=== PATIENT | female | born 1995 | race Caucasian/White ===

== ENCOUNTER 2016-08-12 13:17 | Emergency (ER) | payer OTHER ==
[2016-08-12] MEDS ORDERED: NS 0.9% 1000 ML* 1,000 ML IV ONE (14:21)
[2016-08-12] MEDS ORDERED: Ondansetron INJ* 2 MG/ML VIAL IV ONE (14:21)
[2016-08-12 14:34] LABS: Hematocrit 42 % (35-47); Hemoglobin 14.1 g/dl (12.0-16.0); Mean Corpuscular HGB Conc 34 g/dl (31-36); Mean Corpuscular Hemoglobin 30 pg (27-31); Mean Corpuscular Volume 89 fL (80-97); Mean Platelet Volume 9 um3 (7.4-10.4); Red Blood Count 4.72 10^6/ul (4.0-5.4); Red Cell Distribution Width 12 % (10.5-15); White Blood Count 20.7 10^3/ul (3.5-10.8)
[2016-08-12 14:35] LABS: Add Diff/Slide Review? Slide Review Added; Comments Flag Yes
[2016-08-12 14:47] LABS: ALT 25 U/L (7-52); AST 22 U/L (13-39); Albumin 4.8 g/dL (3.2-5.2); Alkaline Phosphatase 71 U/L (34-104); Anion Gap 16 mmol/L (2-11); BUN/Creatinine Ratio 19.4 (8-20); Blood Urea Nitrogen 13 mg/dL (6-24); CO2 Carbon Dioxide 20 mmol/L (22-32); Calcium 9.8 mg/dL (8.6-10.3); Chloride 102 mmol/L (101-111); EGFR African American 145.8 (>60); EGFR Non-African American 113.4 (>60); Globulin 3.4 g/dL (2-4); Glucose 140 mg/dL (70-100); Lipase < 10 U/L (11.0-82.0); Potassium 3.5 mmol/L (3.5-5.0); Sodium 138 mmol/L (133-145); Total Protein 8.2 g/dL (6.4-8.9)
--- NOTE | 2016-08-12 16:16 | RAD ---
Indication: Epigastric pain. Real-time sonography of the right upper quadrant was performed. Liver is mildly enlarged measuring up to 19 cm in length. No focal lesions or intrahepatic ductal dilatation is noted. The gallbladder demonstrates no gallstones, pericholecystic fluid or wall thickening. Common duct measures 1.1 mm. Right kidney measures 10.9 x 5.9 x 4.8 cm. The pancreatic head, neck and proximal body demonstrates no mass or pancreatic duct dilatation. IMPRESSION: No evidence of cholelithiasis or biliary ductal dilatation is present.
[2016-08-12 16:53] VITALS: BP 112/80
--- NOTE | 2016-08-12 17:12 | RAD ---
Indication: Vomiting. Flat and upright views of the abdomen demonstrate no free air. Dilated loops of bowel are noted. The colon is filled with stool. IMPRESSION: No free air or obstruction is noted.
[2016-08-12 17:21] LABS: Urine Bilirubin Negative (Negative); Urine Glucose Negative (Negative); Urine Nitrite Negative (Negative)
[2016-08-12 17:23] LABS: UR Preg Internal Control QC Line Present
--- NOTE | 2016-08-12 20:30 | ED ---
Conner Zaldivar Billy, scribed for Sebastian Main MD on 08/12/16 at 1546 . Abdominal Pain/Female - HPI Summary HPI Summary: Patient is a 20 y/o female who [facility] c/o epigastric pain since this morning. She reports she consumed a large quantity of EtOH last night recreational and vomited at approximately midnight, but states she has been vomiting nonstop since this morning. Vomiting is worsened by any PO intake. She reports diarrhea, but denies a fever or any blood in her stool. She has been diagnosed with IBS and has a history of bloating and nausea after food intake, but states this is dissimilar to previous experiences. She reports a friend had a similar episode, but recovered much sooner and sx were not as severe. She reports her LNMP was in May 2016 and that she is on BCP. Friends also note she has been shaking constantly for hours, but that has now been resolved. She denies any abnormal urinary sx or vaginal discharge. - History of Current Complaint Chief Complaint: EDNauseaVomitDiarrh Stated Complaint: VOMITING Time Seen by Provider: 08/12/16 14:19 Hx Obtained From: Patient, Other: - Friends Hx Last Menstrual Period: May 2016. Pt is on BCP. Onset/Duration: Gradual Onset, Lasting Hours, Still Present Timing: Constant Severity Initially: Moderate Severity Currently: Moderate Location: Epigastric Radiates: No Aggravating Factor(s): Other: - Unable to tolerate PO intake due to vomiting. Alleviating Factor(s): Nothing Associated Signs and Symptoms: Positive: Nausea, Vomiting, Diarrhea, Other: - shakes. Negative: Fever, Blood in Stool, Urinary Symptoms, Vaginal Discharge Allergies/Adverse Reactions: Allergies Allergy/AdvReac Type Severity Reaction Status Date / Time No Known Allergies Allergy Verified 08/12/16 13:26 PMH/Surg Hx/FS Hx/Imm Hx Cardiovascular History: Reports: Other Cardiovascular Problems/Disorders - POTS Psychiatric History: Reports: Hx Depression - Surgical History Surgery Procedure, Year, and Place: Appendectomy. Infectious Disease History: No Infectious Disease History: Denies: Traveled Outside the US in Last 30 Days - Family History Known Family History: Positive: Diabetes - Father - Social History Alcohol Use: Weekly Hx Substance Use: Yes Substance Use Type: Reports: Marijuana Hx Tobacco Use: No Smoking Status (MU): Never Smoked Tobacco Review of Systems Positive: Other - shakes. Negative: Fever Positive: Abdominal Pain, Vomiting, Diarrhea, Nausea All Other Systems Reviewed And Are Negative: Yes Physical Exam Triage Information Reviewed: Yes Vital Signs On Initial Exam: Initial Vitals Temp Pulse Resp BP Pulse Ox 97.1 F 71 20 131/71 100 08/12/16 13:27 08/12/16 13:27 08/12/16 13:27 08/12/16 13:27 08/12/16 13:27 Vital Signs Reviewed: Yes Appearance: Positive: Well-Appearing - comfortable, pleasant, alert, No Pain Distress - comfortable appearing although not Eyes: Positive: INGRID ENT: Positive: Other - DMM Neck: Positive: Supple, Other: - soft, no adenopathy, no edema Respiratory/Lung Sounds: Positive: Clear to Auscultation, Breath Sounds Present , Other - comfortable. Negative: Rales, Wheezes Cardiovascular: Positive: RRR, Other - no gallops, S1, S2. Negative: Murmur, Rub Abdomen Description: Positive: Soft, Other: - epigastric tenderness without guarding or rebound.. Negative: CVA Tenderness (R), CVA Tenderness (L), Distended Musculoskeletal: Positive: Other - calves are soft and nontender.. Negative: Edema Left, Edema Right Neurological: Positive: Alert, Oriented to Person Place, Time Psychiatric: Positive: Affect/Mood Appropriate - Logical and coherent. AVPU Assessment: Alert Diagnostics - Vital Signs Vital Signs Temp Pulse Resp BP Pulse Ox 08/12/16 13:27 97.1 F 71 20 131/71 100 - Laboratory Lab Results: Lab Results 08/12/16 08/12/16 Range/Units 14:21 14:21 WBC 20.7 H (3.5-10.8) 10^3/ul RBC 4.72 (4.0-5.4) 10^6/ul Hgb 14.1 (12.0-16.0) g/dl Hct 42 (35-47) % MCV 89 (80-97) fL MCH 30 (27-31) pg MCHC 34 (31-36) g/dl RDW 12 (10.5-15) % Plt Count 298 (150-450) 10^3/ul MPV 9 (7.4-10.4) um3 Neut % (Auto) 90.2 H (38-83) % Lymph % (Auto) 5.9 L (25-47) % Johnson % (Auto) 3.3 (1-9) % Eos % (Auto) 0 (0-6) % Baso % (Auto) 0.6 (0-2) % Absolute Neuts (auto) 18.7 H (1.5-7.7) 10^3/ul Absolute Lymphs (auto) 1.2 (1.0-4.8) 10^3/ul Absolute Monos (auto) 0.7 (0-0.8) 10^3/ul Absolute Eos (auto) 0 (0-0.6) 10^3/ul Absolute Basos (auto) 0.1 (0-0.2) 10^3/ul Absolute Nucleated RBC 0 10^3/ul Nucleated RBC % 0 Sodium 138 (133-145) mmol/L Potassium 3.5 (3.5-5.0) mmol/L Chloride 102 (101-111) mmol/L Carbon Dioxide 20 L (22-32) mmol/L Anion Gap 16 H (2-11) mmol/L BUN 13 (6-24) mg/dL Creatinine 0.67 (0.51-0.95) mg/dL Est GFR ( Amer) 145.8 (>60) Est GFR (Non-Af Amer) 113.4 (>60) BUN/Creatinine Ratio 19.4 (8-20) Glucose 140 H (70-100) mg/dL Calcium 9.8 (8.6-10.3) mg/dL Total Bilirubin 0.40 (0.2-1.0) mg/dL AST 22 (13-39) U/L ALT 25 (7-52) U/L Alkaline Phosphatase 71 (34-104) U/L Total Protein 8.2 (6.4-8.9) g/dL Albumin 4.8 (3.2-5.2) g/dL Globulin 3.4 (2-4) g/dL Albumin/Globulin Ratio 1.4 (1-3) Lipase < 10 L (11.0-82.0) U/L Beta HCG, Quant < 0.60 mIU/mL Result Diagrams: 08/12/16 14:21 08/12/16 14:21 Lab Statement: Any lab studies that have been ordered have been reviewed, and results considered in the medical decision making process. - Radiology Abd XRay Radiology Interpretation Completed By: Radiologist - No free air or obstruction is noted. - Ultrasound No standard instances Ultrasound Interpretation Completed By: Radiologist - GALLBLADDER ULTRASOUND: No evidence of cholelithiasis or biliary ductal dilatation is present. Re-Evaluation - Re-Evaluation First Eval Re-Evaluation Time: 16:59 Comment: Improved. Abdominal Pain Fem Course/Dx - Course Course Of Treatment: She represented for vomiting since midnight. She has already had an appendectomy. She presents with benign abd, normal, afebrile, tachycardia. Since she has an elevated WBC, we brought her workup to include a gallbladder US, as well as an X-Ray to look for obstruction. Thus far, work up is completely negative except for elevated WBC. Repeated exam of abd at and it is still completely flat and non-tender, even with deep palpation. This is the most consistent with viral etiology. She agrees without hesitation to return tomorrow for any worsening of sx, any new sx (such as pain), or if the vomiting does not improve. As we speak, she is taking sips of Ally Regine, and we discussed diet, as well. Otherwise she will follow up with [facility] on Sunday. - Diagnoses Differential Diagnosis: Positive: Appendicitis, Ectopic , Gall Bladder Disease, Irritable Bowel Syndrome, Ovarian Cyst, Pancreatitis, Pelvic Inflammatory Disease, Peptic Ulcer Disease, Pneumonia, , Urinary Tract Infection Provider Diagnoses: Vomiting, Gastritis Discharge - Discharge Plan Condition: Good Disposition: HOME Prescriptions: Ondansetron ODT TAB* [Zofran Odt TAB*] 4 mg PO Q8H PRN #12 tab.odt PRN Reason: Vomiting Patient Education Materials: Acute Nausea and Vomiting (ED) Referrals: Non Staff,Doctor [Primary Care Provider] - Additional Instructions: Follow up with [facility] office on Sunday. Return here for any changes or continued vomiting as we discussed. The documentation as recorded by the Conner hubbard Billy accurately reflects the service I personally performed and the decisions made by me, Sebastian Main MD.
== END 2016-08-12 19:09 | disposition home or self-care (01) ==
LOC: ED 13:17
DX: R10.13 Epigastric pain (principal); R11.2 Nausea with vomiting, unspecified; R19.7 Diarrhea, unspecified; K29.70 Gastritis, unspecified, without bleeding
CPT/HCPCS: 36415; 74000; 76705; 80053; 81003; 81025; 83690; 84702; 85025; 96374; 99282; J2405

== ENCOUNTER 2016-11-02 10:54 | Emergency (ER) | payer OTHER ==
--- NOTE | 2016-11-02 12:34 | RAD ---
INDICATION: Head injury. COMPARISON: There are no prior studies available for comparison. TECHNIQUE: Contiguous axial sections of the brain were obtained from the skull base to the vertex without contrast. FINDINGS: The ventricles, cisterns and sulci are within normal limits. No significant focal abnormality or mass effect is seen. There is no evidence for hemorrhage. No significant focal osseous abnormality is seen. The visualized portion of the paranasal sinuses and mastoid air cells appear clear. IMPRESSION: NO EVIDENCE FOR ACUTE INTRACRANIAL ABNORMALITY.
[2016-11-02 12:43] LABS: Hematocrit 43 % (35-47); Hemoglobin 14.4 g/dl (12.0-16.0); Mean Corpuscular HGB Conc 34 g/dl (31-36); Mean Corpuscular Hemoglobin 30 pg (27-31); Mean Corpuscular Volume 90 fL (80-97); Mean Platelet Volume 9 um3 (7.4-10.4); Red Blood Count 4.79 10^6/ul (4.0-5.4); Red Cell Distribution Width 12 % (10.5-15); White Blood Count 14.2 10^3/ul (3.5-10.8)
[2016-11-02 12:54] LABS: ALT 21 U/L (7-52); AST 20 U/L (13-39); Albumin 4.4 g/dL (3.2-5.2); Alkaline Phosphatase 84 U/L (34-104); Anion Gap 9 mmol/L (2-11); Blood Urea Nitrogen 16 mg/dL (6-24); CO2 Carbon Dioxide 25 mmol/L (22-32); Calcium 9.7 mg/dL (8.6-10.3); Chloride 102 mmol/L (101-111); EGFR African American 153.7 (>60); EGFR Non-African American 119.5 (>60); Globulin 3.4 g/dL (2-4); Glucose 98 mg/dL (70-100); Potassium 3.8 mmol/L (3.5-5.0); Sodium 136 mmol/L (133-145); Total Protein 7.8 g/dL (6.4-8.9)
[2016-11-02 13:34] VITALS: BP 113/67
--- NOTE | 2016-11-16 07:08 | ED ---
Conner Zaldivar Billy, scribed for Francisco Armstrong MD on 11/02/16 at 1203 . Head Injury - HPI Summary HPI Summary: Patient is a 20 year-old female with a history of POTS coming to [facility] for evaluation of a head injury to the left occipital region last night. Patient states that she had a sudden onset of syncope, causing her to fall to the ground from a standing position. She denies any prior episodes of syncope. Denies any other injuries due to the fall. She woke up this morning with nausea and vomiting, and was recommended by [facility] to visit [facility] for CT imaging of the brain. She reports a mild headache but denies any changes in vision, speech, or hearing. Denies chest pain or palpitations. Denies any neck pain or changes in her extremities. - History Of Current Complaint Chief Complaint: EDHeadInjury Stated Complaint: FALL Time Seen by Provider: 11/02/16 11:32 Hx Obtained From: Patient Hx Last Menstrual Period: May 2016. Pt is on BCP. Mechanism Of Injury: Fall From A Standing Position Onset/Duration: Started Hours Ago Severity Initially: Mild Location of Head Injury: Occipital Aggravating Factor(s): Other: - none Alleviating Factor(s): Other: - none Associated Signs And Symptoms: LOC (Time In Secs./Mins/Hrs), Nausea, Vomiting - Allergies/Home Medications Allergies/Adverse Reactions: Allergies Allergy/AdvReac Type Severity Reaction Status Date / Time No Known Allergies Allergy Verified 11/02/16 12:12 PMH/Surg Hx/FS Hx/Imm Hx Cardiovascular History: Reports: Other Cardiovascular Problems/Disorders - POTS Neurological History: Reports: Hx Migraine Psychiatric History: Reports: Hx Attention Deficit Hyperactivity Disorder, Hx Depression - Surgical History Surgery Procedure, Year, and Place: Appendectomy. Infectious Disease History: Denies: Traveled Outside the [place] in Last 30 Days - Family History Known Family History: Positive: Diabetes - Father - Social History Alcohol Use: Weekly Hx Substance Use: Yes Substance Use Type: Reports: Marijuana Hx Tobacco Use: No Smoking Status (MU): Never Smoked Tobacco Review of Systems Negative: Palpitations, Chest Pain Positive: Vomiting, Nausea Positive: Headache All Other Systems Reviewed And Are Negative: Yes Physical Exam Triage Information Reviewed: Yes Vital Signs On Initial Exam: Initial Vitals Pulse Resp BP Pulse Ox 91 16 119/72 99 11/02/16 11:25 11/02/16 11:25 11/02/16 11:25 11/02/16 11:25 Vital Signs Reviewed: Yes Appearance: Positive: Well-Appearing, No Pain Distress Skin: Positive: Warm Head/Face: Positive: Normal Head/Face Inspection Eyes: Positive: Normal, EOMI ENT: Positive: Normal ENT inspection Neck: Positive: Supple, Nontender Respiratory/Lung Sounds: Positive: Clear to Auscultation, Breath Sounds Present Cardiovascular: Positive: Normal, RRR. Negative: Murmur Abdomen Description: Positive: Nontender Musculoskeletal: Positive: Normal, Strength/ROM Intact Neurological: Positive: Normal, Sensory/Motor Intact, Alert, Oriented to Person Place, Time, CN Intact II-III Psychiatric: Positive: Normal - 15 gcs - Kamla Coma Scale Best Eye Response: 4 - Spontaneous Best Motor Response: 6 - Obeys Commands Best Verbal Response: 5 - Oriented Diagnostics - Vital Signs Vital Signs Pulse Resp BP Pulse Ox 11/02/16 11:25 91 16 119/72 99 - Laboratory Result Diagrams: 11/02/16 12:25 11/02/16 12:25 Lab Statement: Any lab studies that have been ordered have been reviewed, and results considered in the medical decision making process. - CT brain CT Interpretation: No Acute Changes CT Interpretation Completed By: Radiologist - EKG 1233 EKG Interpretation: NSR 88 bpm, no STEMI Head Injury Course/Dx Course Of Treatment: 20 yr old with known postural tachycardia, and near syncope. she has been worked up in the past by her [employer] in [place]. She had episode and fell and hit head last night. Ct is negative. She will be discharged to follow up at [facility]. - Diagnoses Provider Diagnoses: Head injury, Syncope Discharge - Discharge Plan Condition: Good Disposition: HOME Patient Education Materials: Head Injury (ED), Syncope (ED) Referrals: Non Staff,Doctor [Primary Care Provider] - [facility] [Outside] The documentation as recorded by the Conner hubbard Billy accurately reflects the service I personally performed and the decisions made by me, Francisco Armstrong MD.
== END 2016-11-02 14:32 | disposition home or self-care (01) ==
LOC: ED 10:54
DX: S09.90XA Unspecified injury of head, initial encounter (principal); R55 Syncope and collapse; W19.XXXA Unspecified fall, initial encounter; Y92.9 Unspecified place or not applicable
CPT/HCPCS: 36415; 70450; 80053; 83735; 84702; 85025; 93005; 99282

== ENCOUNTER 2017-04-02 12:24 | Emergency (ER) | payer OTHER ==
[2017-04-02] MEDS ORDERED: Famotidine TAB* 20 MG PO ONE (12:56)
[2017-04-02] MEDS ORDERED: NS 0.9% 1000 ML* 1,000 ML IV ONE (12:56)
[2017-04-02] MEDS ORDERED: methylPREDNISolone 125 MG* 2 ML VIAL IV ONE (12:56)
--- NOTE | 2017-04-02 15:09 | ED ---
Alek Zaldivar Alfonso, scribed for Pelon Tellez MD on 04/02/17 at 1300 . Allergic Reaction/Systemic - HPI Summary HPI Summary: This patient is a 21 year old F [facility] friends with a chief complaint of allergic reaction since 1000. She has a known nut allergy. The patient rates the pain 0/10 in severity. Symptoms aggravated by nothing. Symptoms alleviated by Benadryl. Patient reports abd pain, throat pain, difficulty swallowing, and N/V. - History of Current Complaint Chief Complaint: EDAllergicReaction Time Seen by Provider: 04/02/17 12:52 Hx Obtained From: Patient Onset/Duration: Sudden Onset, Started minutes ago - 1000 Pain Intensity: 0 Pain Scale Used: 0-10 Numeric Aggravating Factor(s): Nothing Alleviating Factor(s): Antihistamines Associated Signs And Symptoms: Positive: Other: - abd pain, throat pain, difficulty swallowing, and N/V. - Allergies/Home Medications Allergies/Adverse Reactions: Allergies Allergy/AdvReac Type Severity Reaction Status Date / Time No Known Allergies Allergy Verified 04/02/17 12:36 PMH/Surg Hx/FS Hx/Imm Hx Endocrine/Hematology History: Denies: Hx Anticoagulant Therapy Cardiovascular History: Reports: Other Cardiovascular Problems/Disorders - POTS Sensory History: Denies: Hx Deafness Opthamlomology History: Denies: Hx Legally Blind Neurological History: Reports: Hx Migraine Psychiatric History: Reports: Hx Attention Deficit Hyperactivity Disorder, Hx Depression - Surgical History Surgery Procedure, Year, and Place: Appendectomy. Infectious Disease History: Denies: Traveled Outside the [place] in Last 30 Days - Family History Known Family History: Positive: Cardiac Disease, Diabetes - Father - Social History Alcohol Use: Weekly Hx Substance Use: Yes Substance Use Type: Reports: Marijuana Hx Tobacco Use: No Smoking Status (MU): Never Smoked Tobacco Review of Systems Positive: Other - Allergic reaction, throat pain, difficulty swallowing Positive: Abdominal Pain, Vomiting, Nausea All Other Systems Reviewed And Are Negative: Yes Physical Exam Triage Information Reviewed: Yes Vital Signs On Initial Exam: Initial Vitals Temp Pulse Resp BP Pulse Ox 97.2 F 80 20 146/88 100 04/02/17 12:33 04/02/17 12:33 04/02/17 12:33 04/02/17 12:33 09/18/17 12:33 Vital Signs Reviewed: Yes Appearance: Positive: Well-Appearing, No Pain Distress Skin: Positive: Warm, Skin Color Reflects Adequate Perfusion, Dry Head/Face: Positive: Normal Head/Face Inspection Eyes: Positive: Normal ENT: Positive: Normal ENT inspection Neck: Positive: Supple, Nontender Respiratory/Lung Sounds: Positive: Clear to Auscultation, Breath Sounds Present Cardiovascular: Positive: RRR Abdomen Description: Positive: Nontender, Soft Bowel Sounds: Positive: Present Musculoskeletal: Positive: Normal Neurological: Positive: Normal, Sensory/Motor Intact, Alert, Oriented to Person Place, Time Psychiatric: Positive: Affect/Mood Appropriate Diagnostics - Vital Signs Vital Signs Temp Pulse Resp BP Pulse Ox 04/02/17 12:33 97.2 F 80 20 146/88 100 - Laboratory Lab Statement: Any lab studies that have been ordered have been reviewed, and results considered in the medical decision making process. Allergic Reaction Course/Dx - Course Course Of Treatment: Ms. Mena ate some tree nuts today. She was aware of a hisptory of peanut allergy but didn't think she was allergic to other nuts. She took benadryl for a closing throat and went to the [facility]. She was given a shot of epi and improved quite a bit. Here she remained stable and received additional medications. She has an epipen that she has never used. - Diagnoses Provider Diagnoses: Allergic reaction Discharge - Discharge Plan Condition: Stable Disposition: HOME Patient Education Materials: General Allergic Reaction (ED) Referrals: [facility] REFERRAL [Outside] - 3 Days The documentation as recorded by the Alek hubbard Alfonso accurately reflects the service I personally performed and the decisions made by me, Pelon Tellez MD.
[2017-04-02 15:41] VITALS: BP 113/75
== END 2017-04-02 15:40 | disposition home or self-care (01) ==
LOC: ED 12:24
DX: T78.40XA Allergy, unspecified, initial encounter (principal); X58.XXXA Exposure to other specified factors, initial encounter; F90.9 Attention-deficit hyperactivity disorder, unspecified type; F32.9 Major depressive disorder, single episode, unspecified
CPT/HCPCS: 96360; 96374; 99283; A9270-GY; J2930

== ENCOUNTER 2017-05-12 15:38 | Emergency (ER) | payer OTHER ==
[2017-05-12 15:48] VITALS: BP 126/82
[2017-05-12] MEDS ORDERED: NS 0.9% 1000 ML* 1,000 ML IV ONE (16:19)
[2017-05-12] MEDS ORDERED: Ondansetron INJ* 2 MG/ML VIAL IV ONE (16:20)
--- NOTE | 2017-05-12 16:26 | UC ---
Nausea/Vomiting/Diarrhea HPI - HPI Summary HPI Summary: 21 Y/O female presents with complaint of nausea, vomiting and diarrhea x one day. Has been unable to keep fluids down and complains of abdominal pain "because I am so hungry" denies pain on palpation. Denies dysuria, fever or chills. Was drinking ETOH last night but does not know how many drinks she consumed but states "a lot". Medications and medical history reviewed. - History of Current Complaint Chief Complaint: UCGI Stated Complaint: VOMITING, AND DIZZINESS Time Seen by Provider: 05/12/17 15:56 Hx Obtained From: Patient Hx Last Menstrual Period: not sure, > a month Onset/Duration: Sudden Onset, Lasting Hours Severity Initially: Moderate Severity Currently: Moderate Pain Intensity: 0 Pain Scale Used: 0-10 Numeric Character: Not Applicable Aggravating Factor(s): Nothing Alleviating Factor(s): Nothing Nausea/Vomiting Presence: Nauseated, Vomiting Vomiting Frequency: Every 1-2 hours Nausea/Vomiting Duration: 0-12 hours Diarrhea Presence: Yes Diarrhea Frequency: Every 3-4 hours Diarrhea Duration: 0-12 hours Diarrhea Characteristics: Watery - Risk Factors Influenza Risk Factors: Negative Surgical Obstruction Risk Factor(s): Negative - Allergies/Home Medications Allergies/Adverse Reactions: Allergies Allergy/AdvReac Type Severity Reaction Status Date / Time Peanut-containing Drug Allergy Swelling Verified 05/12/17 15:49 Products Tree Nuts Allergy Swelling Verified 05/12/17 15:49 Home Medications: Home Medications FLUoxetine CAP* [PROzac CAP*] 20 mg PO DAILY 05/12/17 [History Confirmed ] Methylphenidate ER TAB* [Concerta ER TAB*] 18 mg PO DAILY 05/12/17 [History Confirmed 05/12/17] Methylphenidate TAB* [Ritalin TAB*] 10 mg PO DAILY PRN 05/12/17 [History Confirmed 05/12/17] PMH/Surg Hx/FS Hx/Imm Hx Previously Healthy: Yes Other History Of: Negative For: Anticoagulant Therapy - Surgical History Surgical History: Yes Surgery Procedure, Year, and Place: Appendectomy. - Family History Known Family History: Positive: None - reviewed & noncontributory, Cardiac Disease, Diabetes - Father - Social History Alcohol Use: Weekly Substance Use Type: Marijuana Substance Use Comment - Amount & Last Used: daily Smoking Status (MU): Never Smoked Tobacco - Immunization History Most Recent Influenza Vaccination: none Review of Systems Constitutional: Negative Skin: Negative Eyes: Negative ENT: Negative Respiratory: Negative Cardiovascular: Negative Gastrointestinal: Vomiting, Diarrhea, Nausea Genitourinary: Negative Motor: Negative Neurovascular: Negative Musculoskeletal: Negative Neurological: Negative Psychological: Negative Is Patient Immunocompromised?: No All Other Systems Reviewed And Are Negative: Yes Physical Exam Triage Information Reviewed: Yes Appearance: Ill-Appearing Vital Signs: Initial Vital Signs Temp 97.7 F 05/12/17 15:42 Pulse 103 05/12/17 15:42 Resp 16 05/12/17 15:42 BP 126/82 05/12/17 15:42 Pulse Ox 99 05/12/17 15:42 Vital Signs Reviewed: Yes Eye Exam: Normal Eyes: Positive: Conjunctiva Clear Respiratory Exam: Normal Respiratory: Positive: Lungs clear, Normal breath sounds, No respiratory distress Cardiovascular Exam: Normal Cardiovascular: Positive: Tachycardia - HR 103, regular rate Abdomen Description: Positive: Soft Bowel Sounds: Positive: Present Musculoskeletal Exam: Normal Musculoskeletal: Positive: Strength Intact Neurological Exam: Normal Psychological Exam: Normal Skin Exam: Normal Naus/Vom/Diarrhea Course/Dx - Differential Dx/Diagnosis Differential Diagnoses - Female: , Gastroenteritis (Viral) Provider Diagnoses: Gastroenteritis Discharge - Discharge Plan Condition: Stable Disposition: HOME Patient Education Materials: Gastroenteritis (ED) Additional Instructions: Your test was negative. Take zofran as needed for nausea / vomiting. Start with clear liquids and advance diet as tolerated. Drink plenty of fluids. may return to Urgent Care as needed.
[2017-05-12] MEDS ORDERED: Ondansetron ODT TAB* 4 MG PO ONE (17:32)
[2017-05-12] MEDS ORDERED: Ondansetron ODT TAB* 4 MG ONE (17:33)
== END 2017-05-12 17:37 | disposition home or self-care (01) ==
LOC: UCEAST 15:38
DX: K52.9 Noninfective gastroenteritis and colitis, unspecified (principal); Z32.02 Encounter for pregnancy test, result negative; F12.90 Cannabis use, unspecified, uncomplicated
CPT/HCPCS: 84702; 96360; 96374; 99212; A9270-GY; G0463; J2405

== ENCOUNTER 2017-08-30 09:49 | Emergency (ER) | payer OTHER ==
--- NOTE | 2017-08-30 11:15 | UC ---
Abdominal Pain Female HPI - HPI Summary HPI Summary: Vomiting this morning---states she gets this periodically---this is the 3rd episode that we have seen her for in which she was drinking alcohol, at least 3 drinks , the night prior. No fevers - History of Current Complaint Chief Complaint: UCGeneralIllness Stated Complaint: VOMITING Time Seen by Provider: 08/30/17 11:13 Hx Obtained From: Patient Hx Last Menstrual Period: unknown ?: No Onset/Duration: Sudden Onset, Lasting Days - 1, Still Present Timing: Constant Severity Initially: Moderate Severity Currently: Moderate Pain Intensity: 0 Location: Diffuse Radiates: No Character: Cramping Aggravating Factor(s): Movement Alleviating Factor(s): Nothing - however patient states in the past IVF and Zofran helps Associated Signs and Symptoms: Positive: Nausea, Vomiting Allergies/Adverse Reactions: Allergies Allergy/AdvReac Type Severity Reaction Status Date / Time MS Peanut-containing Drug Allergy Swelling Verified 05/12/17 15:49 Products [Peanut-containing Drug Products] peanut Allergy Swelling Verified 08/30/17 10:00 Tree Nuts Allergy Swelling Verified 05/12/17 15:49 PMH/Surg Hx/FS Hx/Imm Hx Previously Healthy: No Psychological History: Depression, Other Other Psychological History: ADD Other History Of: Negative For: Anticoagulant Therapy - Surgical History Surgical History: Yes Surgery Procedure, Year, and Place: Appendectomy. - Family History Known Family History: Positive: None - reviewed & noncontributory, Cardiac Disease, Diabetes - Father - Social History Occupation: Student Lives: Dormitory/Roommates Alcohol Use: Weekly Substance Use Type: Marijuana - daily Substance Use Comment - Amount & Last Used: daily Smoking Status (MU): Never Smoked Tobacco - Immunization History Most Recent Influenza Vaccination: none Review of Systems Constitutional: Negative Skin: Negative Eyes: Negative ENT: Negative Respiratory: Negative Cardiovascular: Negative Gastrointestinal: Abdominal Pain, Vomiting, Nausea Genitourinary: Negative Motor: Negative Neurovascular: Negative Musculoskeletal: Negative Neurological: Negative Psychological: Negative Is Patient Immunocompromised?: No All Other Systems Reviewed And Are Negative: Yes Physical Exam Triage Information Reviewed: Yes Appearance: Well-Nourished, Ill-Appearing, Pain Distress Vital Signs: Initial Vital Signs Temp 96.6 F 08/30/17 09:55 Pulse 84 08/30/17 09:55 Resp 16 08/30/17 09:55 BP 147/97 02/15/18 09:55 Pulse Ox 100 08/30/17 09:55 Vital Signs Reviewed: Yes Eye Exam: Normal Eyes: Positive: Conjunctiva Clear ENT Exam: Normal ENT: Positive: Normal ENT inspection, Hearing grossly normal, Pharynx normal, TMs normal, Uvula midline. Negative: Nasal congestion, Tonsillar swelling, Tonsillar exudate, Trismus, Muffled voice, Hoarse voice, Dental tenderness, Sinus tenderness Dental Exam: Normal Neck exam: Normal Neck: Positive: Supple, Nontender, No Lymphadenopathy Respiratory Exam: Normal Respiratory: Positive: Chest non-tender, Lungs clear, Normal breath sounds, No respiratory distress, No accessory muscle use Cardiovascular Exam: Normal Cardiovascular: Positive: RRR, No Murmur, Pulses Normal, Brisk Capillary Refill Abdominal Exam: Normal Abdomen Description: Positive: Soft, Other: - diffusly tender. Negative: CVA Tenderness (R), CVA Tenderness (L) Bowel Sounds: Positive: Present Musculoskeletal Exam: Normal Musculoskeletal: Positive: Strength Intact, ROM Intact Neurological Exam: Normal Neurological: Positive: Alert, Muscle Tone Normal Psychological Exam: Normal Skin Exam: Normal Diagnostics - Laboratory Diagnostic Studies Completed/Ordered: u preg (-), urine + 2 ketones, +1 Protient , trace leuks - EKG Cardiac Rate: NL Cardiac Rhythm: Sinus: Normal Ectopy: None ST Segment: Normal Re-Evaluation - Re-Evaluation First Eval Change: Unchanged - continues with left upper quad pain, vomiting and difuse abdomen pain-- Abd Pain Female Course/Dx - Course Course Of Treatment: NPO, IVF to [facility] [place] by ambulance for further evaluation, patient educated to safe drinking per CDC guidelines as well as the connection between cyclic vomiting and daily cannabis use - Differential Dx/Diagnosis Provider Diagnoses: Abd pain and continued vomiting, alcohol misuse, cannabis misuse Discharge - Discharge Plan Condition: Guarded Disposition: TRANS HIGHER LVL OF CARE FAC Referrals: No Primary Care Phys,NOPCP [Primary Care Provider] -
[2017-08-30] MEDS ORDERED: NS 0.9% 1000 ML* 1,000 ML IV ONE ×2 (11:38→12:53)
[2017-08-30] MEDS ORDERED: Ondansetron INJ* 2 MG/ML VIAL IV ONE (11:38)
[2017-08-30 13:03] VITALS: BP 139/93
== END 2017-08-30 13:15 | disposition short-term general hospital (02) ==
LOC: UCEAST 09:49
DX: R10.12 Left upper quadrant pain (principal); R10.84 Generalized abdominal pain; R11.0 Nausea; Z32.02 Encounter for pregnancy test, result negative; Z72.89 Other problems related to lifestyle; F12.90 Cannabis use, unspecified, uncomplicated; F32.9 Major depressive disorder, single episode, unspecified; F98.8 Other specified behavioral and emotional disorders with onset usually occurring in childhood and adolescence; Z91.018 Allergy to other foods; Z91.010 Allergy to peanuts
CPT/HCPCS: 81003; 81025; 87086; 93005; 96361; 96376; 99213; G0463; J2405

== ENCOUNTER 2017-08-30 13:34 | Emergency (ER) | payer OTHER ==
[2017-08-30] MEDS: NS 0.9% 1000 ML* 1,000 ML IV ONE (14:15)
[2017-08-30] MEDS: Ondansetron INJ* 2 MG/ML VIAL IV ONE (14:15)
[2017-08-30 14:38] LABS: ABS Basophils 0 10^3/ul (0-0.2); ABS Eosinophils 0 10^3/ul (0-0.6); ABS Monocytes 0.4 10^3/ul (0-0.8); ABS Neutrophils 14.4 10^3/ul (1.5-7.7); ABS Nucleated RBC 0 10^3/ul; Eosinophil % 0 % (0-6); Hematocrit 39 % (35-47); Hemoglobin 13.3 g/dl (12.0-16.0); Lymphocyte % 6.4 % (25-47); Mean Corpuscular HGB Conc 34 g/dl (31-36); Mean Corpuscular Hemoglobin 31 pg (27-31); Mean Corpuscular Volume 90 fL (80-97); Mean Platelet Volume 9 um3 (7.4-10.4); Nucleated Red Blood Cells % 0; Platelet Count 272 10^3/ul (150-450); Red Blood Count 4.31 10^6/ul (4.0-5.4); Red Cell Distribution Width 13 % (10.5-15); White Blood Count 15.9 10^3/ul (3.5-10.8)
[2017-08-30 14:58] LABS: Urine Appearance Clear; Urine Blood Negative (Negative); Urine Color Straw; Urine Ketones 1+ (Negative); Urine Protein Negative (Negative); Urine Urobilinogen Negative (Negative)
[2017-08-30 15:18] LABS: EGFR Non-African American 140.9 (>60)
[2017-08-30] MEDS: HYDROmorphone INJ* 1 MG/ML CARPUJECT SYRINGE IV ONE (16:36)
[2017-08-30] MEDS: Metoclopramide IV* 5 MG/ML 2 ML VIAL IV ONE (16:36)
[2017-08-30 18:32] VITALS: BP 129/93
--- NOTE | 2017-08-30 21:23 | ED ---
Clint Zaldivar Jennifer, scribed for Pelon Tellez MD on 08/30/17 at 1357 . Abdominal Pain/Female - HPI Summary HPI Summary: The patient is a 21 year old female who was sent from for abdominal pain, nausea, and vomiting that began today. The patient reports that alcohol was involved, and she becomes sick every time she drinks alcohol. She describes the abdominal pain as sharp in the LUQ. She reports that she received fluids at . - History of Current Complaint Chief Complaint: EDAbdPain Stated Complaint: VOMITING Time Seen by Provider: 08/30/17 13:46 Hx Obtained From: Patient Hx Last Menstrual Period: unknown Onset/Duration: Sudden Onset, Still Present Timing: Constant Severity Initially: Moderate Severity Currently: Moderate Pain Intensity: 8 Pain Scale Used: 0-10 Numeric Location: Discrete At: LUQ Radiates: No Character: Sharp Aggravating Factor(s): Nothing Alleviating Factor(s): Nothing Associated Signs and Symptoms: Positive: Nausea Allergies/Adverse Reactions: Allergies Allergy/AdvReac Type Severity Reaction Status Date / Time MS Peanut-containing Drug Allergy Swelling Verified 08/30/17 13:43 Products [Peanut-containing Drug Products] peanut Allergy Swelling Verified 08/30/17 13:43 Tree Nuts Allergy Swelling Verified 08/30/17 13:43 PMH/Surg Hx/FS Hx/Imm Hx Endocrine/Hematology History: Denies: Hx Anticoagulant Therapy Cardiovascular History: Reports: Other Cardiovascular Problems/Disorders - POTS Sensory History: Denies: Hx Legally Blind, Hx Deafness Opthamlomology History: Denies: Hx Legally Blind Neurological History: Reports: Hx Migraine Psychiatric History: Reports: Hx Attention Deficit Hyperactivity Disorder, Hx Depression - Surgical History Surgery Procedure, Year, and Place: Appendectomy. Infectious Disease History: No Infectious Disease History: Denies: Traveled Outside the [place] in Last 30 Days - Family History Known Family History: Positive: Cardiac Disease, Diabetes - Father - Social History Alcohol Use: Weekly Hx Substance Use: Yes Substance Use Type: Reports: Marijuana Substance Use Comment - Amount & Last Used: daily Hx Tobacco Use: No Smoking Status (MU): Never Smoked Tobacco Review of Systems Negative: Chills Positive: Abdominal Pain, Vomiting, Nausea All Other Systems Reviewed And Are Negative: Yes Physical Exam - Summary Physical Exam Summary: Appearance: The patient is well-nourished in no acute distress and in no acute pain. Skin: The skin is warm and dry and skin color reflects adequate perfusion. HEENT: ~The head is normocephalic and atraumatic. The pupils are equal and reactive. The conjunctivae are clear and without drainage. ~Nares are patent and without drainage. ~Mouth reveals moist mucous membranes and the throat is without erythema and exudate. ~The external ears are intact. The ear canals are patent and without drainage. The tympanic membranes are intact. Neck: the neck is supple with full range of motion and non-tender. There are no carotid bruits. ~There is no neck vein distension. Respiratory: Chest is non-tender. ~Lungs are clear to auscultation and breath sounds are symmetrical and equal. Cardiovascular: Heart is regular rate and rhythm. ~There is no murmur or rub auscultated. ~~There is no peripheral edema and pulses are symmetrical and equal. Abdomen: The abdomen is soft and diffusely tender, more so in the epigastrium. ~ There are normal bowel sounds heard in all four quadrants and there is no organomegaly palpated. Musculoskeletal: There is no back tenderness noted. ~Extremities are non-tender with full range of motion. ~There is good capillary refill. ~There is no peripheral edema or calf tenderness elicited. Neurological: Patient is alert and oriented to person, place and time. ~The patient has symmetrical motor strength in all four extremities. ~Cranial nerves are grossly intact. Deep tendon reflexes are symmetrical and equal in all four extremities. Psychiatric: The patient has an appropriate affect and does not exhibit any anxiety or depression. Triage Information Reviewed: Yes Vital Signs On Initial Exam: Initial Vitals BP 126/88 08/30/17 13:39 Vital Signs Reviewed: Yes Diagnostics - Vital Signs Vital Signs Temp Pulse Resp BP Pulse Ox 08/30/17 13:41 98.9 F 83 18 126/88 100 08/30/17 13:40 86 100 08/30/17 13:39 126/88 - Laboratory Lab Results: Lab Results 08/30/17 08/30/17 08/30/17 Range/Units 14:25 14:25 14:25 WBC 15.9 H (3.5-10.8) 10^3/ul RBC 4.31 (4.0-5.4) 10^6/ul Hgb 13.3 (12.0-16.0) g/dl Hct 39 (35-47) % MCV 90 (80-97) fL MCH 31 (27-31) pg MCHC 34 (31-36) g/dl RDW 13 (10.5-15) % Plt Count 272 (150-450) 10^3/ul MPV 9 (7.4-10.4) um3 Neut % (Auto) 90.6 H (38-83) % Lymph % (Auto) 6.4 L (25-47) % [place] % (Auto) 2.7 (1-9) % Eos % (Auto) 0 (0-6) % Baso % (Auto) 0.3 (0-2) % Absolute Neuts (auto) 14.4 H (1.5-7.7) 10^3/ul Absolute Lymphs (auto) 1.0 (1.0-4.8) 10^3/ul Absolute Monos (auto) 0.4 (0-0.8) 10^3/ul Absolute Eos (auto) 0 (0-0.6) 10^3/ul Absolute Basos (auto) 0 (0-0.2) 10^3/ul Absolute Nucleated RBC 0 10^3/ul Nucleated RBC % 0 Sodium 131 L (133-145) mmol/L Potassium 3.4 L (3.5-5.0) mmol/L Chloride 98 L (101-111) mmol/L Carbon Dioxide 21 L (22-32) mmol/L Anion Gap 12 H (2-11) mmol/L BUN 9 (6-24) mg/dL Creatinine 0.55 (0.51-0.95) mg/dL Est GFR ( Amer) 181.2 (>60) Est GFR (Non-Af Amer) 140.9 (>60) BUN/Creatinine Ratio 16.4 (8-20) Glucose 124 H (70-100) mg/dL Lactic Acid 2.2 H* (0.5-2.0) mmol/L Calcium 9.1 (8.6-10.3) mg/dL Total Bilirubin 0.70 (0.2-1.0) mg/dL AST 24 (13-39) U/L ALT 33 (7-52) U/L Alkaline Phosphatase 80 (34-104) U/L C-Reactive Protein 1.51 (< 5.00) mg/L Total Protein 7.6 (6.4-8.9) g/dL Albumin 4.6 (3.2-5.2) g/dL Globulin 3.0 (2-4) g/dL Albumin/Globulin Ratio 1.5 (1-3) Lipase < 10 L (11.0-82.0) U/L Beta HCG, Quant < 0.60 mIU/mL Urine Color Urine Appearance Urine pH (5-9) Ur Specific [place] (1.010-1.030) Urine Protein (Negative) Urine Ketones (Negative) Urine Blood (Negative) Urine Nitrate (Negative) Urine Bilirubin (Negative) Urine Urobilinogen (Negative) Ur Leukocyte Esterase (Negative) Urine Glucose (Negative) 08/30/17 Range/Units 14:44 WBC (3.5-10.8) 10^3/ul RBC (4.0-5.4) 10^6/ul Hgb (12.0-16.0) g/dl Hct (35-47) % MCV (80-97) fL MCH (27-31) pg MCHC (31-36) g/dl RDW (10.5-15) % Plt Count (150-450) 10^3/ul MPV (7.4-10.4) um3 Neut % (Auto) (38-83) % Lymph % (Auto) (25-47) % [place] % (Auto) (1-9) % Eos % (Auto) (0-6) % Baso % (Auto) (0-2) % Absolute Neuts (auto) (1.5-7.7) 10^3/ul Absolute Lymphs (auto) (1.0-4.8) 10^3/ul Absolute Monos (auto) (0-0.8) 10^3/ul Absolute Eos (auto) (0-0.6) 10^3/ul Absolute Basos (auto) (0-0.2) 10^3/ul Absolute Nucleated RBC 10^3/ul Nucleated RBC % Sodium (133-145) mmol/L Potassium (3.5-5.0) mmol/L Chloride (101-111) mmol/L Carbon Dioxide (22-32) mmol/L Anion Gap (2-11) mmol/L BUN (6-24) mg/dL Creatinine (0.51-0.95) mg/dL Est GFR ( Amer) (>60) Est GFR (Non-Af Amer) (>60) BUN/Creatinine Ratio (8-20) Glucose (70-100) mg/dL Lactic Acid (0.5-2.0) mmol/L Calcium (8.6-10.3) mg/dL Total Bilirubin (0.2-1.0) mg/dL AST (13-39) U/L ALT (7-52) U/L Alkaline Phosphatase (34-104) U/L C-Reactive Protein (< 5.00) mg/L Total Protein (6.4-8.9) g/dL Albumin (3.2-5.2) g/dL Globulin (2-4) g/dL Albumin/Globulin Ratio (1-3) Lipase (11.0-82.0) U/L Beta HCG, Quant mIU/mL Urine Color Straw Urine Appearance Clear Urine pH 8.0 (5-9) Ur Specific [place] 1.010 (1.010-1.030) Urine Protein Negative (Negative) Urine Ketones 1+ H (Negative) Urine Blood Negative (Negative) Urine Nitrate Negative (Negative) Urine Bilirubin Negative (Negative) Urine Urobilinogen Negative (Negative) Ur Leukocyte Esterase Negative (Negative) Urine Glucose Negative (Negative) Result Diagrams: 08/30/17 14:25 08/30/17 14:25 Lab Statement: Any lab studies that have been ordered have been reviewed, and results considered in the medical decision making process. Abdominal Pain Fem Course/Dx - Course Course Of Treatment: Ms. Mena was sent over from [facility] with a concern for possible pancreatitis. She drank a fair amount of ETOH last night and has been vomiting and C/O epigastric pain this AM. She was hydrated here and given pain medication and antiemetics and her labs were not indicative of pancreatitis. She improved and I recommended that she stop drinking. - Diagnoses Provider Diagnoses: Dehydration, Alcoholic gastritis Discharge - Discharge Plan Condition: Stable Disposition: HOME Patient Education Materials: Gastritis (ED), Dehydration (ED) Referrals: [facility] PHYSICIAN REFERRAL [Outside] - 3 Days Additional Instructions: Follow up with your primary care physician in three days. Return to the emergency department for any new or worsening symptoms. The documentation as recorded by the Clint hubbard Jennifer accurately reflects the service I personally performed and the decisions made by me, Pelon Tellez MD.
== END 2017-08-30 18:31 | disposition home or self-care (01) ==
LOC: ED 13:34
DX: E86.0 Dehydration (principal); K29.20 Alcoholic gastritis without bleeding
CPT/HCPCS: 36415; 80053; 81003; 83605; 83690; 84702; 85025; 86140; 96361; 96374; 96375; 99283; J1170; J2405; J2765

== ENCOUNTER 2017-10-28 07:28 | Emergency (ER) | payer OTHER ==
[2017-10-28] MEDS ORDERED: NS 0.9% 1000 ML* 1,000 ML IV ONE (08:48)
--- NOTE | 2017-10-28 08:48 | UC ---
Nausea/Vomiting/Diarrhea HPI - HPI Summary HPI Summary: patient accompanied by friend, she states she had one drink yesterday night and has been several times to UC/ER due to vomiting afterwards; she is aware of this reaction she has with alcoholic drinks and friend states that sometimes it happens with only one drink and other times she could have 5 drinks and it would not happen. This new drink was 12% alcohol and was new to her. Despite she taking gatorade after the drink yesterday, she started vomiting around 6am this morning. She is on multiple medications for ADHD/depression and also has Hx of orthostatic hypotension. Denies diarrhea, fever, or any other constitutional symptom - History of Current Complaint Chief Complaint: UCGI Stated Complaint: VOMITING Time Seen by Provider: 10/28/17 07:44 Hx Obtained From: Patient, Other: - friend Hx Last Menstrual Period: 09/02 Onset/Duration: Sudden Onset, Lasting Hours Timing: Constant Severity Initially: Moderate Severity Currently: Moderate Pain Intensity: 0 Aggravating Factor(s): Other: - alcohol Nausea/Vomiting Presence: Vomiting Vomiting Frequency: Every 15-60 minutes Nausea/Vomiting Duration: 0-12 hours Vomiting Characteristics: Nonbilious Diarrhea Presence: No - Risk Factors Influenza Risk Factors: Negative Surgical Obstruction Risk Factor(s): Negative - Allergies/Home Medications Allergies/Adverse Reactions: Allergies Allergy/AdvReac Type Severity Reaction Status Date / Time MS Peanut-containing Drug Allergy Swelling Verified 08/30/17 13:43 Products [Peanut-containing Drug Products] peanut Allergy Swelling Verified 08/30/17 13:43 Tree Nuts Allergy Swelling Verified 08/30/17 13:43 Home Medications: Home Medications Fludrocortisone Acetate TAB* [Florinef TAB*] 10/28/17 [History] Ondansetron ODT TAB* [Zofran 4 MG Odt TAB*] 10/28/17 [History] PMH/Surg Hx/FS Hx/Imm Hx Previously Healthy: Yes Psychological History: Depression, Other - ADHD Other Psychological History: adhd Other History Of: Negative For: Anticoagulant Therapy - Surgical History Surgical History: Yes Surgery Procedure, Year, and Place: Appendectomy. - Family History Known Family History: Positive: None - reviewed & noncontributory, Cardiac Disease, Diabetes - Father - Social History Alcohol Use: Occasionally Substance Use Type: Marijuana Substance Use Comment - Amount & Last Used: daily Smoking Status (MU): Never Smoked Tobacco - Immunization History Most Recent Influenza Vaccination: none Review of Systems Constitutional: Negative Gastrointestinal: Vomiting All Other Systems Reviewed And Are Negative: Yes Physical Exam - Summary Physical Exam Summary: D5NS with 20 meq KCL IV infusion given to patient, Triage Information Reviewed: Yes Appearance: Well-Appearing, Well-Nourished Vital Signs: Initial Vital Signs Temp 97.4 F 10/28/17 07:36 Pulse 90 10/28/17 07:36 Resp 18 10/28/17 07:36 BP 153/118 10/28/17 07:36 Pulse Ox 99 10/28/17 07:36 Vital Signs Reviewed: Yes Eyes: Positive: Conjunctiva Clear Neck exam: Normal Respiratory: Positive: Chest non-tender, Lungs clear, Normal breath sounds, No respiratory distress Cardiovascular: Positive: RRR, No Murmur, Pulses Normal, Brisk Capillary Refill Abdomen Description: Positive: Nontender, No Organomegaly, Soft Bowel Sounds: Positive: Present Naus/Vom/Diarrhea Course/Dx - Course Course Of Treatment: Patient has been given IVF and is feeling much better, volume of vomit has decreased, urine output once during stay in UC, clear, states she is hungry and is ready to go home, counselled to stop ETOH altogether. RT to UC/ER if vomiting recurs - Differential Dx/Diagnosis Provider Diagnoses: Vomiting secondary to ETOH reaction Is Visit Related: No Condition At Discharge: Stable Discharge - Sign-Out/Discharge Documenting (check all that apply): Discharge - Discharge Plan Condition: Stable Disposition: HOME Patient Education Materials: Dehydration (ED), Acute Nausea and Vomiting (ED), Abuse of Alcohol (DC) Referrals: No Primary Care Phys,NOPCP [Primary Care Provider] - - Billing Disposition and Condition Condition: STABLE Disposition: HOME
[2017-10-28] MEDS ORDERED: Ondansetron INJ* 2 MG/ML VIAL IV ONE ×2 (08:57→09:04)
[2017-10-28] MEDS ORDERED: Metoclopramide IV* 5 MG/ML 2 ML VIAL IV SLOW PU ONE (09:00)
[2017-10-28] MEDS ORDERED: NS 0.9% w/ 20 Meq KCL 1000 ML* 1,000 ML IV SCH (09:00)
[2017-10-28] MEDS ORDERED: D5W NS 0.9% 20Meq KCL 1000 ML* 1,000 ML IV SCH (09:00)
[2017-10-28 10:52] VITALS: BP 132/86
== END 2017-10-28 10:53 | disposition home or self-care (01) ==
LOC: UCEAST 07:28
DX: R11.10 Vomiting, unspecified (principal); F90.9 Attention-deficit hyperactivity disorder, unspecified type; F32.9 Major depressive disorder, single episode, unspecified; I95.1 Orthostatic hypotension
CPT/HCPCS: 96360; 96374; 99213; G0463; J2405

== ENCOUNTER 2017-10-28 15:19 | Emergency (ER) | payer OTHER ==
[2017-10-28] MEDS ORDERED: Ondansetron INJ* 2 MG/ML VIAL IV ONE (15:59)
[2017-10-28 16:18] LABS: ABS Basophils 0 10^3/ul (0-0.2); ABS Eosinophils 0 10^3/ul (0-0.6); ABS Lymphocytes 0.9 10^3/ul (1.0-4.8); ABS Monocytes 0.3 10^3/ul (0-0.8); ABS Neutrophils 14.9 10^3/ul (1.5-7.7); ABS Nucleated RBC 0 10^3/ul; Eosinophil % 0 % (0-6); Hematocrit 42 % (35-47); Hemoglobin 14.4 g/dl (12.0-16.0); Lymphocyte % 5.6 % (25-47); Mean Corpuscular HGB Conc 34 g/dl (31-36); Mean Corpuscular Hemoglobin 31 pg (27-31); Mean Corpuscular Volume 90 fL (80-97); Mean Platelet Volume 8.9 um3 (7.4-10.4); Nucleated Red Blood Cells % 0; Platelet Count 295 10^3/ul (150-450); Red Blood Count 4.69 10^6/ul (4.0-5.4); Red Cell Distribution Width 13 % (10.5-15); White Blood Count 16.2 10^3/ul (3.5-10.8)
[2017-10-28] MEDS: NS 0.9% 1000 ML* 2,000 ML IV ONE (16:27)
[2017-10-28 16:35] LABS: EGFR Non-African American 112.2 (>60)
[2017-10-28 16:38] LABS: Urine Appearance Cloudy; Urine Blood Negative (Negative); Urine Color Yellow; Urine Ketones 1+ (Negative); Urine Protein 3+(>=500 mg/dL) (Negative); Urine Specific Gravity 1.023 (1.010-1.030); Urine Urobilinogen Negative (Negative)
[2017-10-28 18:06] VITALS: BP 118/70
--- NOTE | 2017-11-08 14:43 | ED ---
Angelica Zaldivar Emily, scribed for Barrett Deleon MD on 10/28/17 at 1600 . GI/ HPI - HPI Summary HPI Summary: This patient is a 21 year old F presenting to [facility] with a chief complaint of nausea and vomiting that began this morning. The patient rates the pain 0/10 in severity. Symptoms aggravated by nothing. Symptoms alleviated by nothing. Patient reports watery diarrhea and diaphoresis. Pt reports being seen by Dr. Hewitt urgent care for these symptoms, and left AMA after receiving an IV. Pt reports coming to the ER two other times for similar symptoms since July,. Pt denies sick contacts at home. - History of Current Complaint Chief Complaint: EDNauseaVomitDiarrh Time Seen by Provider: 10/28/17 15:44 Stated Complaint: N/V/LIGHTHEADEDNESS Hx Obtained From: Patient Hx Last Menstrual Period: 09/02 Onset/Duration: Started Hours Ago, Still Present Timing: Constant, Lasting Hours Severity: Mild Current Severity: Mild Pain Intensity: 0 - Allergy/Home Medications Allergies/Adverse Reactions: Allergies Allergy/AdvReac Type Severity Reaction Status Date / Time peanut Allergy Swelling Verified 10/28/17 21:27 Tree Nuts Allergy Swelling Verified 10/28/17 21:27 PMH/Surg Hx/FS Hx/Imm Hx Previously Healthy: No Endocrine/Hematology History: Denies: Hx Anticoagulant Therapy, Hx Diabetes, Hx Thyroid Disease Cardiovascular History: Reports: Other Cardiovascular Problems/Disorders - POTS Denies: Hx Hypertension Respiratory History: Denies: Hx Asthma, Hx Chronic Obstructive Pulmonary Disease (COPD) GI History: Denies: Hx Ulcer Sensory History: Denies: Hx Legally Blind, Hx Deafness Opthamlomology History: Denies: Hx Legally Blind Neurological History: Reports: Hx Migraine Psychiatric History: Reports: Hx Attention Deficit Hyperactivity Disorder, Hx Depression - Surgical History Surgery Procedure, Year, and Place: Appendectomy. Infectious Disease History: No Infectious Disease History: Denies: Hx Hepatitis, Hx Human Immunodeficiency Virus (HIV), Traveled Outside the US in Last 30 Days - Family History Known Family History: Positive: Cardiac Disease, Diabetes - Father - Social History Occupation: Student Lives: Dormitory/Roommates Alcohol Use: Occasionally Hx Substance Use: Yes Substance Use Type: Reports: Marijuana Substance Use Comment - Amount & Last Used: daily Hx Tobacco Use: No Smoking Status (MU): Never Smoked Tobacco Review of Systems Positive: Skin Diaphoresis. Negative: Fever, Chills Negative: Erythema Negative: Sore Throat Negative: Chest Pain Negative: Shortness Of Breath Positive: Vomiting, Diarrhea, Nausea Negative: dysuria, hematuria Negative: Myalgia, Edema Negative: Rash Neurological: Other - Negative dizziness All Other Systems Reviewed And Are Negative: Yes Physical Exam - Summary Physical Exam Summary: Constitutional: Well-developed, Well-nourished, Alert. (-) Distressed Skin: Warm, Dry HENT: Normocephalic; Atraumatic Eyes: Conjunctiva normal Neck: Musculoskeletal ROM normal neck. (-) JVD, (-) Stridor, (-) Tracheal deviation Cardio: Rhythm regular, rate normal, Heart sounds normal; Intact distal pulses; The pedal pulses are 2+ and symmetric. Radial pulses are 2+ and symmetric. (-) Murmur Pulmonary/Chest wall: Effort normal. (-) Respiratory distress, (-) Wheezes, (-) Rales Abd: Soft, (-) Tenderness, (-) Distension, (-) Guarding, (-) Rebound Musculoskeletal: (-) Edema Lymph: (-) Cervical adenopathy Neuro: Alert, Oriented x3 Psych: Mood and affect Normal Triage Information Reviewed: Yes Vital Signs On Initial Exam: Initial Vitals Temp Pulse Resp BP Pulse Ox 97.4 F 83 16 133/57 100 10/28/17 15:24 10/28/17 15:24 10/28/17 15:24 10/28/17 15:24 10/28/17 15:24 Vital Signs Reviewed: Yes Diagnostics - Vital Signs Vital Signs Temp Pulse Resp BP Pulse Ox 10/28/17 15:24 97.4 F 83 16 133/57 100 - Laboratory Lab Results: Lab Results 10/28/17 10/28/17 10/28/17 Range/Units 16:08 16:08 16:08 WBC 16.2 H (3.5-10.8) 10^3/ul RBC 4.69 (4.0-5.4) 10^6/ul Hgb 14.4 (12.0-16.0) g/dl Hct 42 (35-47) % MCV 90 (80-97) fL MCH 31 (27-31) pg MCHC 34 (31-36) g/dl RDW 13 (10.5-15) % Plt Count 295 (150-450) 10^3/ul MPV 8.9 (7.4-10.4) um3 Neut % (Auto) 92.2 H (38-83) % Lymph % (Auto) 5.6 L (25-47) % [place] % (Auto) 2.0 (0-7) % Eos % (Auto) 0 (0-6) % Baso % (Auto) 0.2 (0-2) % Absolute Neuts (auto) 14.9 H (1.5-7.7) 10^3/ul Absolute Lymphs (auto) 0.9 L (1.0-4.8) 10^3/ul Absolute Monos (auto) 0.3 (0-0.8) 10^3/ul Absolute Eos (auto) 0 (0-0.6) 10^3/ul Absolute Basos (auto) 0 (0-0.2) 10^3/ul Absolute Nucleated RBC 0 10^3/ul Nucleated RBC % 0 Sodium 135 L (139-145) mmol/L Potassium 3.9 (3.5-5.0) mmol/L Chloride 99 L (101-111) mmol/L Carbon Dioxide 24 (22-32) mmol/L Anion Gap 12 H (2-11) mmol/L BUN 10 (6-24) mg/dL Creatinine 0.67 (0.51-0.95) mg/dL Est GFR ( Amer) 144.3 (>60) Est GFR (Non-Af Amer) 112.2 (>60) BUN/Creatinine Ratio 14.9 (8-20) Glucose 128 H (70-100) mg/dL Lactic Acid 2.0 (0.5-2.0) mmol/L Calcium 9.6 (8.6-10.3) mg/dL Total Bilirubin 0.60 (0.2-1.0) mg/dL AST 22 (13-39) U/L ALT 27 (7-52) U/L Alkaline Phosphatase 72 (34-104) U/L C-Reactive Protein 4.40 (< 5.00) mg/L Total Protein 8.3 (6.4-8.9) g/dL Albumin 5.0 (3.2-5.2) g/dL Globulin 3.3 (2-4) g/dL Albumin/Globulin Ratio 1.5 (1-3) Lipase < 10 L (11.0-82.0) U/L Urine Color Urine Appearance Urine pH (5-9) Ur Specific [place] (1.010-1.030) Urine Protein (Negative) Urine Ketones (Negative) Urine Blood (Negative) Urine Nitrate (Negative) Urine Bilirubin (Negative) Urine Urobilinogen (Negative) Ur Leukocyte Esterase (Negative) Urine WBC (Auto) (Absent) Urine RBC (Auto) (Absent) Ur Squamous Epith Cells (Absent) Urine Bacteria (Absent) Urine Glucose (Negative) Urine Ascorbic Acid (Negative) 10/28/17 Range/Units 16:14 WBC (3.5-10.8) 10^3/ul RBC (4.0-5.4) 10^6/ul Hgb (12.0-16.0) g/dl Hct (35-47) % MCV (80-97) fL MCH (27-31) pg MCHC (31-36) g/dl RDW (10.5-15) % Plt Count (150-450) 10^3/ul MPV (7.4-10.4) um3 Neut % (Auto) (38-83) % Lymph % (Auto) (25-47) % [place] % (Auto) (0-7) % Eos % (Auto) (0-6) % Baso % (Auto) (0-2) % Absolute Neuts (auto) (1.5-7.7) 10^3/ul Absolute Lymphs (auto) (1.0-4.8) 10^3/ul Absolute Monos (auto) (0-0.8) 10^3/ul Absolute Eos (auto) (0-0.6) 10^3/ul Absolute Basos (auto) (0-0.2) 10^3/ul Absolute Nucleated RBC 10^3/ul Nucleated RBC % Sodium (139-145) mmol/L Potassium (3.5-5.0) mmol/L Chloride (101-111) mmol/L Carbon Dioxide (22-32) mmol/L Anion Gap (2-11) mmol/L BUN (6-24) mg/dL Creatinine (0.51-0.95) mg/dL Est GFR ( Amer) (>60) Est GFR (Non-Af Amer) (>60) BUN/Creatinine Ratio (8-20) Glucose (70-100) mg/dL Lactic Acid (0.5-2.0) mmol/L Calcium (8.6-10.3) mg/dL Total Bilirubin (0.2-1.0) mg/dL AST (13-39) U/L ALT (7-52) U/L Alkaline Phosphatase (34-104) U/L C-Reactive Protein (< 5.00) mg/L Total Protein (6.4-8.9) g/dL Albumin (3.2-5.2) g/dL Globulin (2-4) g/dL Albumin/Globulin Ratio (1-3) Lipase (11.0-82.0) U/L Urine Color Yellow Urine Appearance Cloudy Urine pH 7.0 (5-9) Ur Specific [place] 1.023 (1.010-1.030) Urine Protein 3+(>=500 mg/dl) A (Negative) Urine Ketones 1+ A (Negative) Urine Blood Negative (Negative) Urine Nitrate Negative (Negative) Urine Bilirubin Negative (Negative) Urine Urobilinogen Negative (Negative) Ur Leukocyte Esterase Negative (Negative) Urine WBC (Auto) Trace(0-5/hpf) (Absent) Urine RBC (Auto) Absent (Absent) Ur Squamous Epith Cells Present A (Absent) Urine Bacteria Absent (Absent) Urine Glucose Negative (Negative) Urine Ascorbic Acid * A (Negative) Result Diagrams: 10/28/17 16:08 10/28/17 16:08 Lab Statement: Any lab studies that have been ordered have been reviewed, and results considered in the medical decision making process. GIGU Course/Dx - Diagnoses Differential Diagnoses - Female: Gastroenteritis (Viral), Other - Alcohol intolerance Provider Diagnoses: Dehydration, Proteinuria, Gastroenteritis Discharge - Sign-Out/Discharge Documenting (check all that apply): Discharge/Admit/Transfer Signing out patient TO: Barrett Deleon - Discharge Plan Condition: Stable Disposition: HOME Discharge Disposition Comment: Sign out to Harriet Mike upon scribe shift change Patient Education Materials: Dehydration (ED), Gastroenteritis (ED) Forms: *School Release Referrals: [facility],IC [Z.BUSINESS, APPLICATION, OTHER] - 2 Days (Follow up in 2 -3 days with IC clinic) Additional Instructions: Return to emergency department with any changing or worsening symptoms. Follow up with health clinic in 2-3 days. - Billing Disposition and Condition Condition: STABLE Disposition: HOME The documentation as recorded by the Angelica hubbard Emily accurately reflects the service I personally performed and the decisions made by me, Barrett Deleno MD.
--- NOTE | 2017-11-08 14:44 | ED ---
Cee Zaldivar Elizabeth, scribed for Barrett Deleon MD on 10/28/17 at 1611 . GI/ HPI - History of Current Complaint Chief Complaint: EDNauseaVomitDiarrh Time Seen by Provider: 10/28/17 15:44 Stated Complaint: N/V/LIGHTHEADEDNESS Hx Last Menstrual Period: 09/02 Pain Intensity: 0 - Allergy/Home Medications Allergies/Adverse Reactions: Allergies Allergy/AdvReac Type Severity Reaction Status Date / Time peanut Allergy Swelling Verified 10/28/17 21:27 Tree Nuts Allergy Swelling Verified 10/28/17 21:27 PMH/Surg Hx/FS Hx/Imm Hx Endocrine/Hematology History: Denies: Hx Anticoagulant Therapy, Hx Diabetes, Hx Thyroid Disease Cardiovascular History: Reports: Other Cardiovascular Problems/Disorders - POTS Denies: Hx Hypertension Respiratory History: Denies: Hx Asthma, Hx Chronic Obstructive Pulmonary Disease (COPD) GI History: Denies: Hx Ulcer Sensory History: Denies: Hx Legally Blind, Hx Deafness Opthamlomology History: Denies: Hx Legally Blind Neurological History: Reports: Hx Migraine Psychiatric History: Reports: Hx Attention Deficit Hyperactivity Disorder, Hx Depression - Surgical History Surgery Procedure, Year, and Place: Appendectomy. Infectious Disease History: No Infectious Disease History: Denies: Hx Hepatitis, Hx Human Immunodeficiency Virus (HIV), Traveled Outside the [place] in Last 30 Days - Family History Known Family History: Positive: None - reviewed & noncontributory, Cardiac Disease, Diabetes - Father - Social History Alcohol Use: Occasionally Hx Substance Use: Yes Substance Use Type: Reports: Marijuana Substance Use Comment - Amount & Last Used: daily Hx Tobacco Use: No Smoking Status (MU): Never Smoked Tobacco Review of Systems All Other Systems Reviewed And Are Negative: Yes Physical Exam Vital Signs On Initial Exam: Initial Vitals Temp Pulse Resp BP Pulse Ox 97.4 F 83 16 133/57 100 10/28/17 15:24 10/28/17 15:24 10/28/17 15:24 10/28/17 15:24 10/28/17 15:24 Diagnostics - Vital Signs Vital Signs Temp Pulse Resp BP Pulse Ox 10/28/17 15:24 97.4 F 83 16 133/57 100 - Laboratory Lab Results: Lab Results 04/15/18 04/15/18 04/15/18 Range/Units 16:08 16:08 16:08 WBC 16.2 H (3.5-10.8) 10^3/ul RBC 4.69 (4.0-5.4) 10^6/ul Hgb 14.4 (12.0-16.0) g/dl Hct 42 (35-47) % MCV 90 (80-97) fL MCH 31 (27-31) pg MCHC 34 (31-36) g/dl RDW 13 (10.5-15) % Plt Count 295 (150-450) 10^3/ul MPV 8.9 (7.4-10.4) um3 Neut % (Auto) 92.2 H (38-83) % Lymph % (Auto) 5.6 L (25-47) % [place] % (Auto) 2.0 (0-7) % Eos % (Auto) 0 (0-6) % Baso % (Auto) 0.2 (0-2) % Absolute Neuts (auto) 14.9 H (1.5-7.7) 10^3/ul Absolute Lymphs (auto) 0.9 L (1.0-4.8) 10^3/ul Absolute Monos (auto) 0.3 (0-0.8) 10^3/ul Absolute Eos (auto) 0 (0-0.6) 10^3/ul Absolute Basos (auto) 0 (0-0.2) 10^3/ul Absolute Nucleated RBC 0 10^3/ul Nucleated RBC % 0 Sodium 135 L (139-145) mmol/L Potassium 3.9 (3.5-5.0) mmol/L Chloride 99 L (101-111) mmol/L Carbon Dioxide 24 (22-32) mmol/L Anion Gap 12 H (2-11) mmol/L BUN 10 (6-24) mg/dL Creatinine 0.67 (0.51-0.95) mg/dL Est GFR ( Amer) 144.3 (>60) Est GFR (Non-Af Amer) 112.2 (>60) BUN/Creatinine Ratio 14.9 (8-20) Glucose 128 H (70-100) mg/dL Lactic Acid 2.0 (0.5-2.0) mmol/L Calcium 9.6 (8.6-10.3) mg/dL Total Bilirubin 0.60 (0.2-1.0) mg/dL AST 22 (13-39) U/L ALT 27 (7-52) U/L Alkaline Phosphatase 72 (34-104) U/L C-Reactive Protein 4.40 (< 5.00) mg/L Total Protein 8.3 (6.4-8.9) g/dL Albumin 5.0 (3.2-5.2) g/dL Globulin 3.3 (2-4) g/dL Albumin/Globulin Ratio 1.5 (1-3) Lipase < 10 L (11.0-82.0) U/L Urine Color Urine Appearance Urine pH (5-9) Ur Specific [place] (1.010-1.030) Urine Protein (Negative) Urine Ketones (Negative) Urine Blood (Negative) Urine Nitrate (Negative) Urine Bilirubin (Negative) Urine Urobilinogen (Negative) Ur Leukocyte Esterase (Negative) Urine WBC (Auto) (Absent) Urine RBC (Auto) (Absent) Ur Squamous Epith Cells (Absent) Urine Bacteria (Absent) Urine Glucose (Negative) Urine Ascorbic Acid (Negative) 10/28/17 Range/Units 16:14 WBC (3.5-10.8) 10^3/ul RBC (4.0-5.4) 10^6/ul Hgb (12.0-16.0) g/dl Hct (35-47) % MCV (80-97) fL MCH (27-31) pg MCHC (31-36) g/dl RDW (10.5-15) % Plt Count (150-450) 10^3/ul MPV (7.4-10.4) um3 Neut % (Auto) (38-83) % Lymph % (Auto) (25-47) % [place] % (Auto) (0-7) % Eos % (Auto) (0-6) % Baso % (Auto) (0-2) % Absolute Neuts (auto) (1.5-7.7) 10^3/ul Absolute Lymphs (auto) (1.0-4.8) 10^3/ul Absolute Monos (auto) (0-0.8) 10^3/ul Absolute Eos (auto) (0-0.6) 10^3/ul Absolute Basos (auto) (0-0.2) 10^3/ul Absolute Nucleated RBC 10^3/ul Nucleated RBC % Sodium (139-145) mmol/L Potassium (3.5-5.0) mmol/L Chloride (101-111) mmol/L Carbon Dioxide (22-32) mmol/L Anion Gap (2-11) mmol/L BUN (6-24) mg/dL Creatinine (0.51-0.95) mg/dL Est GFR ( Amer) (>60) Est GFR (Non-Af Amer) (>60) BUN/Creatinine Ratio (8-20) Glucose (70-100) mg/dL Lactic Acid (0.5-2.0) mmol/L Calcium (8.6-10.3) mg/dL Total Bilirubin (0.2-1.0) mg/dL AST (13-39) U/L ALT (7-52) U/L Alkaline Phosphatase (34-104) U/L C-Reactive Protein (< 5.00) mg/L Total Protein (6.4-8.9) g/dL Albumin (3.2-5.2) g/dL Globulin (2-4) g/dL Albumin/Globulin Ratio (1-3) Lipase (11.0-82.0) U/L Urine Color Yellow Urine Appearance Cloudy Urine pH 7.0 (5-9) Ur Specific [place] 1.023 (1.010-1.030) Urine Protein 3+(>=500 mg/dl) A (Negative) Urine Ketones 1+ A (Negative) Urine Blood Negative (Negative) Urine Nitrate Negative (Negative) Urine Bilirubin Negative (Negative) Urine Urobilinogen Negative (Negative) Ur Leukocyte Esterase Negative (Negative) Urine WBC (Auto) Trace(0-5/hpf) (Absent) Urine RBC (Auto) Absent (Absent) Ur Squamous Epith Cells Present A (Absent) Urine Bacteria Absent (Absent) Urine Glucose Negative (Negative) Urine Ascorbic Acid * A (Negative) Result Diagrams: 10/28/17 16:08 10/28/17 16:08 Lab Statement: Any lab studies that have been ordered have been reviewed, and results considered in the medical decision making process. Re-Evaluation - Re-Evaluation re-eval 1 Re-Evaluation Time: 05:25 Change: Improved Comment: Patient tolerates PO GIGU Course/Dx - Course Course Of Treatment: This patient is a 21 year old F presenting to [facility] with a chief complaint of nausea and vomiting that began this morning. Test results with no significant abnormalities. In the ED course the patient was given IV fluids and Zofran. Patient will be discharged with diagnosis of dehydration, proteinuria, and gastroenteritis and should follow up from primary care physician in 2-3 days. The patient is agreeable with this plan. - Diagnoses Provider Diagnoses: Dehydration, Proteinuria, Gastroenteritis Discharge - Sign-Out/Discharge Documenting (check all that apply): Discharge/Admit/Transfer, Receiving Sign-Out Receiving patient FROM: Barrett Deleon - Discharge Plan Condition: Stable Disposition: HOME Discharge Disposition Comment: Recieving from upon scribe shift change Patient Education Materials: Dehydration (ED), Gastroenteritis (ED) Forms: *School Release Referrals: [facility],IC [Z.BUSINESS, APPLICATION, OTHER] - 2 Days (Follow up in 2 -3 days with IC clinic) Additional Instructions: Return to emergency department with any changing or worsening symptoms. Follow up with health clinic in 2-3 days. - Billing Disposition and Condition Condition: STABLE Disposition: HOME The documentation as recorded by the Cee hubbard Elizabeth accurately reflects the service I personally performed and the decisions made by , Barrett Deleon MD.
== END 2017-10-28 18:05 | disposition home or self-care (01) ==
LOC: ED 15:19
DX: E86.0 Dehydration (principal); R80.9 Proteinuria, unspecified; K52.9 Noninfective gastroenteritis and colitis, unspecified; F90.9 Attention-deficit hyperactivity disorder, unspecified type; I49.8 Other specified cardiac arrhythmias
CPT/HCPCS: 36415; 80053; 81003; 81015; 83605; 83690; 85025; 86140; 87077; 87086; 96360; 96374; 99282; J2405

== ENCOUNTER 2017-10-28 20:41 | Observation (INO) | payer OTHER ==
[2017-10-28] MEDS ORDERED: Ondansetron ODT TAB* 4 MG PO ONE ×2 (21:19→21:20)
[2017-10-28] MEDS ORDERED: Lidocaine 2% VISCOUS* 15 ML UDC PO ONE (21:20)
[2017-10-28] MEDS ORDERED: Al Hydrox/Mg Hydrox/Simet LIQ* 30 ML UDC PO ONE (21:20)
[2017-10-28] MEDS ORDERED: Ondansetron ODT TAB* 4 MG ONE (21:32)
[2017-10-28] MEDS ORDERED: diPHENhydraMINE IV* 50 MG/ML 1 ml VIAL (BENADRYL) SLOW PUSH ONE (21:55)
[2017-10-28] MEDS ORDERED: Metoclopramide IV* 5 MG/ML 2 ML VIAL IV SLOW PU ONE (21:55)
[2017-10-28] MEDS ORDERED: NS 0.9% 1000 ML* 1,000 ML IV ONE (21:55)
[2017-10-28] MEDS ORDERED: Ondansetron INJ* 2 MG/ML VIAL IV ONE (22:17)
[2017-10-28] MEDS ORDERED: NS 0.9% 1000 ML* 1,000 ML IV SCH (22:30)
--- NOTE | 2017-10-29 00:36 | HP ---
HISTORY AND PHYSICAL: DATE OF ADMISSION: 10/28/17 ADMITTING PROVIDER: Guillermo Sanders MD. PRIMARY CARE PROVIDER: Dr. Gaines [place], [place]. CHIEF COMPLAINT: Uncontrolled Nausea/Vomiting; abdominal pain HISTORY OF PRESENT ILLNESS: Breann Mena is a 21-year-old female with a past medical history of depression, ADHD, POTS, IBS, alcohol sensitivity, who also uses marijuana. She is a college student, had a Four Rashaad in addition to a beer the night prior to admission and also smoked marijuana. She woke up at 6 a.m. on the morning of admission with nausea and vomiting, presented to Urgent Care and was referred to [facility] where she received IV Zofran , was feeling better, and was discharged with a prescription for Zofran ODT tabs. Unfortunately, the [facility] pharmacy was closed and she was not able to fill this. She went home, feeling okay, ate some soup, and drank some balaji allan, and then immediately started vomiting again. Presented to [facility], was given Zofran ODT and immediately vomited that. She was referred to the hospitalist service for intractable nausea and vomiting. She also attests to chills starting the day of admission. She has a leukocytosis of 16.2, proteinuria of 3+ on her urinalysis. She attests to a band of abdominal pain in her lower abdomen starting this morning and worsened with the vomiting. She attests that she drinks up many bottles Gatorade or other electrolyte supplementation drinks daily to maintain her hydration status and she reports she usually has darker urine. She drinks alcohol about every 2 weeks, has about 4 beers at a time during these episodes. She has been in the emergency room frequently with nausea and vomiting after drinking, this is the most long lasting it has ever been. She did not keep down any of her medications including the Florinef 0.1 mg daily on the day of admission. PAST MEDICAL HISTORY: POTS, marijuana use, IBS, depression, ADHD, alcohol intolerance. ALLERGIES: PEANUT and TREE NUTS. FAMILY HISTORY: Mother with hypothyroidism. Father with hypertension and diabetes mellitus. SOCIAL HISTORY: The patient is a college student at [employer]. She smokes marijuana. Drinks every 2 weeks, about 4 beers during those episodes. Denies any other drug use. Her medical surrogate is her mother, Melissa Mena , who is present at bedside. She desires to be a full code. REVIEW OF SYSTEMS: A complete 14-point review of systems is negative, except as per HPI. PHYSICAL EXAMINATION GENERAL APPEARANCE: Alternating between lying with her wet rag on her head and retching into a bag uncontrollably. VITAL SIGNS: Temperature 98.3, pulse 92, respiratory rate 20, blood pressure 145/92. HEENT: Normocephalic and atraumatic. Pupils are equal, round, and reactive to light. Extraocular motions are intact. No scleral icterus. NECK: Supple. PULMONARY: Clear to auscultation bilaterally, with no wheezing, rales or rhonchi. CARDIOVASCULAR: Regular rate and rhythm. No murmurs, rubs, or gallops. ABDOMEN: Soft, slightly tender in the suprapubic and bilateral lower quadrants. No rebound or guarding. No Cooper's sign. EXTREMITIES: Warm and well perfused. No peripheral edema. NEUROLOGIC: Cranial nerves II through XII are intact. Moving all extremities. SKIN: No lesions and no rashes. LABORATORY DATA: Of note, obtained during prior ED visit earlier on the day of admission, around 4 p.m.: White count 16.2, hemoglobin 14.4, hematocrit 42, platelets 295, neutrophils 92.2%. Sodium 135, potassium 3.9, chloride 99, carbon dioxide 24, BUN 10, creatinine 0.67, glucose 128, lactic acid 2.0. Total bili 0.60, AST 22, ALT 27, alk phos 72, CRP 4.4, lipase less than 10. Urinalysis: 3+ protein, 1+ ketones. IMAGING: None. ASSESSMENT AND PLAN: Breann Mena is a 21-year-old female with a past medical history of POTS, alcoholic sensitivity, continues to drink, presenting with intractable nausea and vomiting. This is her second presentation to the emergency room today. She was unable to obtain her Zofran ODT pills and did not tolerate them on rechallenge in the emergency room, immediately spitting them or vomiting them back up. We are going to admit her to observation status for intractable nausea and vomiting, give her IV Zofran 8 mg now and 4 mg q.6 hours. Also we will try Reglan 10 mg IV that has been ordered by the Emergency Room. She is getting 1 liter of normal saline in the emergency room and I will put her on 125 cc an hour for the next 12 hours. We will check her electrolytes , BMP, and CBC in the morning. She denies any burning with urination or increased frequency of urination. UA was not concerning for urinary tract infection, though she does have 3+ proteinuria and that should be followed up as an outpatient (Addendum: spot Urine Protein to Urine Creatinine also ordered) . We will continue her on Florinef 0.1 mg daily, her Ritalin, Concerta, and Prozac for her mood and ADHD disorders. She can eat a clear liquid diet for now , advance as tolerated. She is a full code. Medical surrogate is her mother, Melissa Mena. We will get an EKG to establish baseline of her QTc given frequent antiemetic administration. Obviously alcohol abstinence is encouraged given this is at least the third or fourth time she is presenting to the emergency room with nausea and vomiting after alcohol use. [id number]/CPS #: [id number] MTDD
[2017-10-29] MEDS ORDERED: PROCHLORPERAZINE INJ 5 MG/ML 2 ML VIAL IV PRN (00:41)
[2017-10-29] MEDS ORDERED: Ketorolac INJ* 15 MG/ML 1 ML VIAL IV PUSH PRN (00:41)
[2017-10-29 00:47] LABS: ABS Basophils 0 10^3/ul (0-0.2); ABS Eosinophils 0 10^3/ul (0-0.6); ABS Lymphocytes 1.1 10^3/ul (1.0-4.8); ABS Monocytes 0.9 10^3/ul (0-0.8); ABS Neutrophils 14.1 10^3/ul (1.5-7.7); ABS Nucleated RBC 0 10^3/ul; Eosinophil % 0 % (0-6); Hematocrit 38 % (35-47); Hemoglobin 13.2 g/dl (12.0-16.0); Lymphocyte % 6.9 % (25-47); Mean Corpuscular HGB Conc 34 g/dl (31-36); Mean Corpuscular Hemoglobin 31 pg (27-31); Mean Corpuscular Volume 89 fL (80-97); Mean Platelet Volume 8.8 um3 (7.4-10.4); Nucleated Red Blood Cells % 0; Platelet Count 271 10^3/ul (150-450); Red Blood Count 4.31 10^6/ul (4.0-5.4); Red Cell Distribution Width 13 % (10.5-15); White Blood Count 16.1 10^3/ul (3.5-10.8)
[2017-10-29 01:02] LABS: EGFR Non-African American 127.5 (>60)
[2017-10-29] MEDS ORDERED: Ondansetron INJ* 2 MG/ML VIAL IV PRN ×2 (02:00)
[2017-10-29] MEDS ORDERED: Magnesium Sulfate IV* 3 GM in NS 0.9% 100 ML* 100 ML IVPB ONE (02:29)
[2017-10-29] MEDS ORDERED: Potassium Chloride IV* 60 MEQ in NS 0.9% 500 ML* 500 ML IVPB ONE (03:00)
[2017-10-29] MEDS ORDERED: KCL 20 MEQ/100 ML IVPREMIX* 20 MEQ/100 ML BAG IV SCH (03:00)
[2017-10-29] MEDS ORDERED: Magnesium Sulfate 2 GM IV IVPB ONE (03:00)
[2017-10-29] MEDS ORDERED: Magnesium Sulfate 1 GM IV* 1 GM/100 ML BAG IV ONE (04:00)
[2017-10-29] MEDS ORDERED: Methylphenidate TAB* 10 MG PO PRN (08:00)
[2017-10-29] MEDS ORDERED: Fludrocortisone Acetate TAB* 0.1 MG PO SCH (09:00)
[2017-10-29] MEDS ORDERED: FLUoxetine CAP* 10 MG PO SCH (09:00)
[2017-10-29] MEDS ORDERED: Methylphenidate ER TAB* 18 MG PO SCH (09:00)
[2017-10-29 13:38] VITALS: BP 121/69
--- NOTE | 2017-10-30 03:54 | DS ---
CC: 1. Dr. Joel Gaines in [place], [place], phone #[phone] * 2. Dr. Rosio Hinojosa, Marine Reporter at [facility] * DISCHARGE SUMMARY: DATE OF ADMISSION: 10/28/17 DATE OF DISCHARGE: 10/29/17 PRIMARY CARE PROVIDER: Dr. Joel Gaines. DISCHARGE DIAGNOSES: 1. Intractable nausea and vomiting secondary to alcohol intake. 2. Proteinuria of unclear etiology. SECONDARY DIAGNOSES: 1. Postural orthostatic tachycardia syndrome. 2. Marijuana use. 3. Irritable bowel syndrome. 4. Depression. 5. Attention deficit hyperactivity disorder. 6. Alcohol intolerance. MEDICATIONS: 1. Methylphenidate 10 mg p.o. b.i.d. as needed for restlessness. 2. Methylphenidate ER 18 mg p.o. daily. 3. Florinef 0.1 mg p.o. daily. 4. Fluoxetine 40 mg p.o. daily. New medication: 1. Ondansetron ODT 4 mg p.o. q.8 hours p.r.n. nausea and vomiting. HOSPITAL COURSE: Ms. Mena is a 21-year-old lady with a past medical history as stated above that had 4 local beers the night prior to admission and had also smoked marijuana. She woke up with nausea and vomiting, presented to the emergency room, was treated with IV Zofran and felt better. She was discharged with a prescription for Zofran ODT, but her pharmacy was closed and she was not able to fill up her prescription. At home, she tried to eat and immediately started vomiting again. She returned to the emergency room and ended up being admitted for intractable nausea and vomiting. For more details about her presentation, I refer you to her history and physical. The patient received symptomatic treatment and her diet was advanced and she was able to tolerate it well. Her potassium and magnesium were also repleted. Also of note is the fact that the patient had a urinalysis that revealed 3+ protein and that seems to be a new finding when compared to her prior UA from August. The patient will need further evaluation as outpatient. This may be related just to dehydration due to her vomiting, but if the repeat UA confirms proteinuria, she may need further workup. The patient is medically stable to be discharged home today. She was advised about the importance of avoiding alcohol intake since she seems to be so sensitive to it. PHYSICAL EXAMINATION: Vital Signs: Temperature 98.8, heart rate 77, respiratory rate 17, oxygen saturation 96% on room air, blood pressure 121/69. General: The patient is a pleasant young lady, sitting up in bed, in no acute distress. Extremities: No edema. Neuro: She is alert and oriented x3. Able to move all 4 extremities. DIET: Regular diet. ACTIVITY: As tolerated. DISPOSITION: To home. STATUS WHILE IN THE HOSPITAL: Observation. Please keep in mind this is a summarized version of this patient's hospital stay. If you need more information, please feel free to call me at [phone] or please obtain full medical records. TIME SPENT: Approximately 40 minutes were spent to complete this discharge. [id number]/CPS #: [id number] MTDNolvia
--- NOTE | 2017-11-08 14:48 | ED ---
Cee Zaldivar Elizabeth, scribed for Barrett Deleon MD on 10/28/17 at 2125 . GI/ HPI - HPI Summary HPI Summary: This patient is a 21 year old F returning to [facility] after being discharged after her pharmacy had closed, leaving her unable to fill her prescription for Zofran. She is now dry heaving and has mild epigastric pain. Refer to previous note from earlier visit. - History of Current Complaint Chief Complaint: EDNauseaVomitDiarrh Time Seen by Provider: 10/28/17 21:08 Stated Complaint: VOMITING Hx Obtained From: Patient Hx Last Menstrual Period: 09/02 Onset/Duration: Started Hours Ago, Still Present Timing: Constant Pain Intensity: 7 Associated Signs and Symptoms: Positive: Vomiting Additional Signs & Symptoms: Positive: Other: - mild epigastric pain Aggravating Factor(s): Nothing Alleviating Factor(s): Nothing - Allergy/Home Medications Allergies/Adverse Reactions: Allergies Allergy/AdvReac Type Severity Reaction Status Date / Time peanut Allergy Swelling Verified 10/28/17 21:27 Tree Nuts Allergy Swelling Verified 10/28/17 21:27 PMH/Surg Hx/FS Hx/Imm Hx Endocrine/Hematology History: Denies: Hx Anticoagulant Therapy, Hx Diabetes, Hx Thyroid Disease Cardiovascular History: Reports: Other Cardiovascular Problems/Disorders - POTS Denies: Hx Hypertension Respiratory History: Denies: Hx Asthma, Hx Chronic Obstructive Pulmonary Disease (COPD) GI History: Denies: Hx Ulcer Sensory History: Denies: Hx Legally Blind, Hx Deafness Opthamlomology History: Denies: Hx Legally Blind Neurological History: Reports: Hx Migraine Psychiatric History: Reports: Hx Attention Deficit Hyperactivity Disorder, Hx Depression - Surgical History Surgery Procedure, Year, and Place: Appendectomy. Infectious Disease History: No Infectious Disease History: Denies: Hx Hepatitis, Hx Human Immunodeficiency Virus (HIV), Traveled Outside the [place] in Last 30 Days - Family History Known Family History: Positive: None - reviewed & noncontributory, Cardiac Disease, Diabetes - Father - Social History Alcohol Use: Occasionally Hx Substance Use: Yes Substance Use Type: Reports: Marijuana Substance Use Comment - Amount & Last Used: daily Hx Tobacco Use: No Smoking Status (MU): Never Smoked Tobacco Review of Systems Negative: Fever, Chills Negative: Erythema Negative: Sore Throat Negative: Chest Pain Negative: Shortness Of Breath, Cough Positive: Abdominal Pain - mild epigastric pain, Vomiting, Nausea Negative: dysuria, hematuria Negative: Myalgia, Edema Negative: Rash Neurological: Other - NEGATIVE DIZZINESS All Other Systems Reviewed And Are Negative: Yes Physical Exam - Summary Physical Exam Summary: Constitutional: Well-developed, Well-nourished, Alert. (-) Distressed Skin: Warm, Dry HENT: Normocephalic; Atraumatic Eyes: Conjunctiva normal Neck: Musculoskeletal ROM normal neck. (-) JVD, (-) Stridor, (-) Tracheal deviation Cardio: Rhythm regular, rate normal, Heart sounds normal; Intact distal pulses; The pedal pulses are 2+ and symmetric. Radial pulses are 2+ and symmetric. (-) Murmur Pulmonary/Chest wall: Effort normal. (-) Respiratory distress, (-) Wheezes, (-) Rales Abd: Soft, (+) Mild epigastric tenderness, (-) Distension, (-) Guarding, (-) Rebound, (+) Dry heaving Musculoskeletal: (-) Edema Lymph: (-) Cervical adenopathy Neuro: Alert, Oriented x3 Psych: Mood and affect Normal Triage Information Reviewed: Yes Vital Signs On Initial Exam: Initial Vitals Temp Pulse Resp BP Pulse Ox 98.3 F 92 20 145/92 98 10/28/17 20:46 10/28/17 20:46 10/28/17 20:46 10/28/17 20:46 10/28/17 20:46 Vital Signs Reviewed: Yes Diagnostics - Vital Signs Vital Signs Temp Pulse Resp BP Pulse Ox 10/28/17 20:46 98.3 F 92 20 145/92 98 - Laboratory Lab Statement: Any lab studies that have been ordered have been reviewed, and results considered in the medical decision making process. Re-Evaluation - Re-Evaluation first re-eval Re-Evaluation Time: 21:50 Change: Worse Comment: Patient is vomiting up PO Zofran, not tolerating PO meds. Discussed admission for refractory vomiting and gastroenteritis. GIGU Course/Dx - Course Course Of Treatment: This patient is a 21 year old F returning to [facility] after being discharged after her pharmacy had closed, leaving her unable to fill her prescription for Zofran. She is now dry heaving and has mild epigastric pain. Upon re-evaluation patient had vomited up PO Zofran. Patient will be admitted with diagnosis of refractory vomiting and gastroenteritis. - Diagnoses Provider Diagnoses: Refractory nausea and vomiting, Gastroenteritis Discharge - Sign-Out/Discharge Documenting (check all that apply): Discharge - Discharge Plan Condition: Stable Disposition: ADMITTED TO [facility] Referrals: No Primary Care Phys,NOPCP [Primary Care Provider] - The documentation as recorded by the Cee hubbard Elizabeth accurately reflects the service I personally performed and the decisions made by me, Barrett Deleon MD.
== END 2017-10-29 14:10 | disposition home or self-care (01) ==
LOC: ED 20:41 → MED 22:19
PROVIDERS: ADMIT Internal Medicine; ATTEND Internal Medicine
DX: R11.2 Nausea with vomiting, unspecified (principal); F10.10 Alcohol abuse, uncomplicated; R80.9 Proteinuria, unspecified; R10.9 Unspecified abdominal pain; F90.9 Attention-deficit hyperactivity disorder, unspecified type; Z79.899 Other long term (current) drug therapy; F12.10 Cannabis abuse, uncomplicated
CPT/HCPCS: 36415; 80053; 82570; 83605; 83735; 84156; 85025; 96365; 96366; 96375; 99283; A9270-GY; G0378; J0780; J1885; J2405; J3475; J3480

== ENCOUNTER 2018-04-07 14:34 | Emergency (ER) | payer OTHER ==
[2018-04-07] MEDS ORDERED: NS 0.9% 1000 ML* 1,000 ML IV ONE ×2 (14:48→15:51)
[2018-04-07] MEDS ORDERED: Ondansetron INJ* 2 MG/ML VIAL IV ONE (14:48)
--- NOTE | 2018-04-07 15:04 | UC ---
General HPI - HPI Summary HPI Summary: Patient presents with a past medical history of orthostatic hypotension, and tachycardia. She states last night her and friends were out having a few drnks, she had 4-5 alcohol beverages, no more that her usual. She presents today with persistent vomiting. She also reports almost daily use of marijuana use and noted 4-5 episodes of vomiting annually. She reports she has been vomiting all day long, and she continues to dry heave and cannot tolerate anything by mouth. She is currently menstruating and started her period yesterday. She reports discomfort in her abdomen when she is vomiting, but denies otherwise. - History of Current Complaint Chief Complaint: UCGI Stated Complaint: VOMITING Time Seen by Provider: 04/07/18 14:47 Hx Obtained From: Patient Hx Last Menstrual Period: 04/05/18 Onset/Duration: Sudden Onset Timing: Intermittent Episodes Lasting: Onset Severity: Mild Current Severity: Mild Pain Intensity: 0 Associated Signs & Symptoms: Positive: Vomiting - Allergy/Home Medications Allergies/Adverse Reactions: Allergies Allergy/AdvReac Type Severity Reaction Status Date / Time peanut Allergy Swelling Verified 04/07/18 14:43 Tree Nuts Allergy Swelling Verified 04/07/18 14:43 PMH/Surg Hx/FS Hx/Imm Hx Previously Healthy: Yes Other History Of: Negative For: Anticoagulant Therapy - Surgical History Surgical History: Yes Surgery Procedure, Year, and Place: Appendectomy. - Family History Known Family History: Positive: None - reviewed & noncontributory, Cardiac Disease, Diabetes - Father - Social History Lives: Alone Alcohol Use: Occasionally Substance Use Type: Marijuana Substance Use Comment - Amount & Last Used: daily Smoking Status (MU): Never Smoked Tobacco - Immunization History Most Recent Influenza Vaccination: none Review of Systems Constitutional: Negative Skin: Negative Eyes: Negative ENT: Negative Respiratory: Negative Cardiovascular: Negative Gastrointestinal: Vomiting, Nausea Genitourinary: Negative Motor: Negative Neurovascular: Negative Musculoskeletal: Negative Neurological: Negative Psychological: Negative Is Patient Immunocompromised?: No All Other Systems Reviewed And Are Negative: Yes Physical Exam Triage Information Reviewed: Yes Appearance: Ill-Appearing Vital Signs: Initial Vital Signs Temp 97.7 F 04/07/18 14:40 Pulse 60 04/07/18 14:40 Resp 18 04/07/18 14:40 BP 137/96 04/07/18 14:40 Pulse Ox 98 04/07/18 14:40 Vital Signs Reviewed: Yes Eye Exam: Normal ENT Exam: Normal Neck exam: Normal Neck: Positive: 1 Respiratory Exam: Normal Cardiovascular Exam: Normal Abdominal Exam: Normal Musculoskeletal Exam: Normal Neurological Exam: Normal Skin Exam: Normal Re-Evaluation - Re-Evaluation First Eval Re-Evaluation Time: 16:50 - AFTER SECOND LITER NS PT FEELS READY FOR D/C. HAS URINATED AND IS TOLERATING PO FLUIDS. Change: Improved Course/Dx - Course Course Of Treatment: Patient presents with persistent vomiting, she reports alcohol consumtion last night, but not excessively. She also uses marijuana almost daily, given her normal VS and clinical presentation I suspect hyperemesis cannabinoid syndrome as well as dehydration from vomiting. I gave the patient IV normal saline 1 liter, and IV zofran while in the clinic. She was also given an article on hyperemesis cannaboid syndrome to read. I recommend she stop smoking marijuana. Once patient has stopped vomiting, has improvement in her symtpoms, and tolerates po fluids she will be discharge home. - Differential Dx - Multi-Symptom Provider Diagnoses: vomiting. dehydration. suspect hyperemesis cannabinoid syndrome. Discharge - Sign-Out/Discharge Documenting (check all that apply): Patient Departure All imaging exams completed and their final reports reviewed: No Studies - Discharge Plan Condition: Stable Disposition: HOME Prescriptions: Metoclopramide HCl [Reglan] 5 mg PO QID PRN #15 tablet PRN Reason: Nausea/Vomiting Patient Education Materials: Dehydration (ED), Acute Nausea and Vomiting (ED) Referrals: No Primary Care Phys,NOPCP [Primary Care Provider] - - Billing Disposition and Condition Condition: STABLE Disposition: Home
[2018-04-07] MEDS ORDERED: Metoclopramide IV* 5 MG/ML 2 ML VIAL IV ONE (15:51)
[2018-04-07 16:45] VITALS: BP 149/89
== END 2018-04-07 17:00 | disposition home or self-care (01) ==
LOC: UCEAST 14:34
DX: R11.10 Vomiting, unspecified (principal); E86.0 Dehydration; Z91.018 Allergy to other foods; Z91.010 Allergy to peanuts
CPT/HCPCS: 96360; 96361; 96374; 96375; 99212; G0463; J2405; J2765

== ENCOUNTER 2018-10-27 10:06 | Emergency (ER) | payer OTHER ==
--- OUTSIDE RECORDS SUMMARY | 2018-10-27 10:14 | XMS REPORT | Continuity of Care Document ---
:1995 External Reference #:[id number] Author Name Crissy Cao Care Team Providers Name Role Phone Guillermo Sanders MD Care Team Information Ship Captain Unavailable Payers Date Identification Numbers Payment Provider Subscriber Policy Number: [id number] [facility] Boby Mena PayID: [id number] [address] [place] [address] Advance Directives Description No Information Available Problems Description No Information Family History Description No Information Available Social History Type Date Description Comments Sex Unknown Allergies, Adverse Reactions, Alerts Description No Information Medications Description No Information Immunizations Description No Information Available Vital Signs Description No Information Available Results Description No Information Available Procedures Description No Information Available Encounters Type Date Location Provider Dx Diagnosis Office Visit 10/29/2017 [facility] Morelia Trotter, R11.2 Nausea with 11:04a Assocrenata M.D. vomiting, Hospitalists unspecified D72.829 Elevated white blood cell count, unspecified F90.9 Attention-deficit hyperactivity disorder, unspecified type F12.90 Cannabis use, unspecified, uncomplicated Office Visit 10/28/2017 11:03a [facility] Guillermo Sanders, R11.2 Nausea with Assocrenata MD vomiting, Hospitalists unspecified D72.829 Elevated white blood cell count, unspecified F90.9 Attention-deficit hyperactivity disorder, unspecified type F12.90 Cannabis use, unspecified, uncomplicated Plan of Treatment No Information Available
[2018-10-27] MEDS ORDERED: NS 0.9% 1000 ML** 1,000 ML IV ONE (10:17)
--- NOTE | 2018-10-27 10:19 | UC ---
Nausea/Vomiting/Diarrhea HPI - HPI Summary HPI Summary: Patient is a 22 year old female, who present today to the urgent care with nausea and vomiting since morning today. She reports that she has had the similar episode in past in March of last year. There is significant associated abdominal pain. Vomiting has been constant since morning. Denies any blood. denies any exposure. She reports that she had 4-5 alcoholic drinks last night and felt fine . She uses marijuana every day. Denies any fever, chills, cough chest pain or shortness of breath .Denies any diarrhea or constipation she was given Reglan on here last visit here, which she has run out of. - History of Current Complaint Stated Complaint: VOMITING Time Seen by Provider: 10/27/18 10:12 Hx Obtained From: Patient, Family/[employer] - her friend Hx Last Menstrual Period: 04/05/18 ?: No - 2 weeks ago - Allergies/Home Medications Allergies/Adverse Reactions: Allergies Allergy/AdvReac Type Severity Reaction Status Date / Time peanut Allergy Swelling Verified 04/07/18 14:43 Tree Nuts Allergy Swelling Verified 04/07/18 14:43 PMH/Surg Hx/FS Hx/Imm Hx - Additional Past Medical History Additional PMH: POTS syndrome Substance abuse Previously Healthy: Yes Other History Of: Negative For: Anticoagulant Therapy - Surgical History Surgical History: Yes Surgery Procedure, Year, and Place: Appendectomy. - Family History Known Family History: Positive: None - reviewed & noncontributory, Cardiac Disease, Diabetes - Father - Social History Alcohol Use: Occasionally Substance Use Type: Marijuana Substance Use Comment - Amount & Last Used: daily Smoking Status (MU): Never Smoked Tobacco - Immunization History Most Recent Influenza Vaccination: none Review of Systems All Other Systems Reviewed And Are Negative: Yes Constitutional: Positive: Negative Skin: Positive: Negative Eyes: Positive: Negative ENT: Positive: Negative Respiratory: Positive: Negative Cardiovascular: Positive: Negative Gastrointestinal: Positive: Abdominal Pain, Vomiting, Nausea Genitourinary: Positive: Negative Motor: Positive: Negative Neurovascular: Positive: Negative Musculoskeletal: Positive: Negative Neurological: Positive: Negative Psychological: Positive: Negative Is Patient Immunocompromised?: No Physical Exam - Summary Physical Exam Summary: Physical Exam: Const: Appears well. No signs of apparent distress present. Alert and oriented x 3. Musculo: Walks with a normal gait. Head/Face: Atraumatic, normocephalic on inspection. Eyes: EOMI and PERRLA in both eyes. Conjunctivae clear. No discharge noted ENT: Hearing normal Respiratory: Respirations are unlabored. Lungs clear to auscultation bilaterally CVS: Regular rate and Rhythm, S1S2 normal , no murmurs identified. Extremities: Peripheral circulation is grossly normal. Pulses 2+ Abdomen : Soft significant generalized tenderness, hyperkinetic bowel sounds. She was guarding but no rigidity noted. Skin: No lesions or rash located on the upper extremities or on the lower extremities. Neuro: Cranial nerves II to XII intact, motor and sensory intact. DTR Intact bilaterally. Mood is normal. Affect is normal. Triage Information Reviewed: Yes Vital Signs Reviewed: Yes Naus/Vom/Diarrhea Course/Dx - Course Course Of Treatment: During the visit today, she has significant abdominal pain along with constant vomiting. she was given 1 dose of Zofran and IV fluids( normal saline) were started. We discussed the findings and further plan to transferred to ER for definitive further management which might include lab testing and possible imaging if needed.Patient expressed understanding . Report called to the ER provider(MD Rajinder) at [facility], advised provider of the history, physical examination, and duration of illness and labs/imaging so far and the need for definitive management. Patient transferred to ER via ambulance. - Differential Dx/Diagnosis Provider Diagnosis: Nausea and vomiting, Gastritis Condition At Discharge: Stable Discharge - Sign-Out/Discharge Documenting (check all that apply): Patient Departure All imaging exams completed and their final reports reviewed: No Studies - Discharge Plan Condition: Stable Disposition: TRANS HIGHER LVL OF CARE FAC Referrals: No Primary Care Phys,NOPCP [Primary Care Provider] - Additional Instructions: Patient needs additional testing, thus ER transfer advised and patient agrees. Report called to the ER provider(MD Rajinder) at [facility], advised provider of the history, physical examination, and duration of illness and labs/imaging so far and the need for definitive management. Patient transferred to ER via ambulance. - Billing Disposition and Condition Condition: STABLE Disposition: Trans Higher Lvl of Care Fac
[2018-10-27] MEDS ORDERED: Ondansetron INJ* 2 MG/ML VIAL IV ONE (10:20)
[2018-10-27 10:22] VITALS: BP 166/136
== END 2018-10-27 10:40 | disposition short-term general hospital (02) ==
LOC: UCEAST 10:06
DX: K29.70 Gastritis, unspecified, without bleeding (principal); R11.2 Nausea with vomiting, unspecified; R10.817 Generalized abdominal tenderness; Z91.018 Allergy to other foods; Z91.010 Allergy to peanuts
CPT/HCPCS: 96360; 96374; 99213; G0463; J2405

== ENCOUNTER 2018-10-27 10:58 | Emergency (ER) | payer OTHER ==
[2018-10-27] MEDS ORDERED: Metoclopramide IV* 5 MG/ML 2 ML VIAL IV ONE (11:17)
[2018-10-27] MEDS ORDERED: NS 0.9% 1000 ML** 2,000 ML IV ONE (11:17)
--- NOTE | 2018-10-27 11:23 | ED ---
GI/ HPI - HPI Summary HPI Summary: This patient is a 22 year old F brought in by ambulance to [facility] upon referral from Urgent Care with a chief complaint of N/V since 07:00. The patient reports that she has experienced this symptoms multiple times before and notes she is usually told it is because she drinks too much. Patient notes that sometimes the symptoms occur even when she doesnt drink as much as usual. Patient notes that today she drank less than usual and had 1/3 bottle of champagne and 2 shots. The patient reports she smokes marijuana daily. The patient rates the pain 3/10 in severity. Symptoms aggravated by nothing. Symptoms alleviated by nothing. Per triage note, the patient says Reglan is the only medication that previously alleviated her symptoms. Patient has hx of POTS and notes that it is often aggravated by dehydration. - History of Current Complaint Chief Complaint: EDNauseaVomitDiarrh Time Seen by Provider: 10/27/18 11:08 Stated Complaint: NAUSEA/VOMITING PER EMS Hx Obtained From: Patient Hx Last Menstrual Period: 04/05/18 Onset/Duration: Started Hours Ago, Atraumatic, Still Present Timing: Lasting Hours Severity: Mild Current Severity: Mild Pain Intensity: 3 Associated Signs and Symptoms: Positive: Nausea, Vomiting Aggravating Factor(s): Nothing Alleviating Factor(s): Nothing - Additional Pertinent History Primary Care Physician: [id number] - Allergy/Home Medications Allergies/Adverse Reactions: Allergies Allergy/AdvReac Type Severity Reaction Status Date / Time peanut Allergy Swelling Verified 04/07/18 14:43 Tree Nuts Allergy Swelling Verified 04/07/18 14:43 PMH/Surg Hx/FS Hx/Imm Hx Endocrine/Hematology History: Denies: Hx Anticoagulant Therapy, Hx Diabetes, Hx Thyroid Disease Cardiovascular History: Reports: Other Cardiovascular Problems/Disorders - POTS Denies: Hx Hypertension Respiratory History: Denies: Hx Asthma, Hx Chronic Obstructive Pulmonary Disease (COPD) GI History: Denies: Hx Ulcer Sensory History: Denies: Hx Contacts or Glasses, Hx Legally Blind, Hx Deafness, Hx Hearing Aid Opthamlomology History: Denies: Hx Contacts or Glasses, Hx Legally Blind Neurological History: Reports: Hx Migraine, Other Neuro Impairments/Disorders - POTS Psychiatric History: Reports: Hx Attention Deficit Hyperactivity Disorder, Hx Depression - Surgical History Surgery Procedure, Year, and Place: Appendectomy. Infectious Disease History: No Infectious Disease History: Denies: Hx Hepatitis, Hx Human Immunodeficiency Virus (HIV), Traveled Outside the [place] in Last 30 Days - Family History Known Family History: Positive: Cardiac Disease, Diabetes - Father - Social History Alcohol Use: Occasionally Hx Substance Use: Yes Substance Use Type: Reports: Marijuana Substance Use Comment - Amount & Last Used: daily Hx Tobacco Use: No Smoking Status (MU): Never Smoked Tobacco Review of Systems Negative: Fever Negative: Epistaxis Negative: Cough Positive: Vomiting, Nausea Negative: Slurred Speech All Other Systems Reviewed And Are Negative: Yes Physical Exam - Summary Physical Exam Summary: Appearance: The patient is well-nourished in no acute distress and in no acute pain. Patient is repeatedly retching Skin: The skin is warm and dry and skin color reflects adequate perfusion. HEENT: The head is normocephalic and atraumatic. The pupils are equal and reactive. The conjunctivae are clear and without drainage. Nares are patent and without drainage. Mouth reveals moist mucous membranes and the throat is without erythema and exudate. The external ears are intact. The ear canals are patent and without drainage. The tympanic membranes are intact. Neck: The neck is supple with full range of motion and non-tender. There are no carotid bruits. There is no neck vein distension. Respiratory: Chest is non-tender. Lungs are clear to auscultation and breath sounds are symmetrical and equal. Cardiovascular: Heart is regular rate and rhythm. There is no murmur or rub auscultated. There is no peripheral edema and pulses are symmetrical and equal. Abdomen: The abdomen is soft and non-tender. There are normal bowel sounds heard in all four quadrants and there is no organomegaly palpated. Musculoskeletal: There is no back tenderness noted. Extremities are non-tender with full range of motion. There is good capillary refill. There is no peripheral edema or calf tenderness elicited. Neurological: Patient is alert and oriented to person, place and time. The patient has symmetrical motor strength in all four extremities. Cranial nerves are grossly intact. Deep tendon reflexes are symmetrical and equal in all four extremities. Psychiatric: The patient has an appropriate affect and does not exhibit any anxiety or depression Triage Information Reviewed: Yes Vital Signs On Initial Exam: Initial Vitals Temp Pulse Resp BP Pulse Ox 97.0 F 76 20 146/109 98 10/27/18 11:04 10/27/18 11:04 10/27/18 11:04 10/27/18 11:04 10/27/18 11:04 Vital Signs Reviewed: Yes Diagnostics - Vital Signs Vital Signs Temp Pulse Resp BP Pulse Ox 10/27/18 11:09 78 97 10/27/18 11:04 97.0 F 76 20 146/109 98 - Laboratory Result Diagrams: 10/27/18 11:57 10/27/18 11:57 Lab Statement: Any lab studies that have been ordered have been reviewed, and results considered in the medical decision making process. GIGU Course/Dx - Course Assessment/Plan: Ms. Mena presented complaining of intractable vomiting this morning along with some abdominal pain. She was apparently quite dramatic over in the [facility] and had to be taken care of in the parking lot. She has had episodes like this in the past generally after she's been drinking a lot although she apparently drinks frequently and she states that there doesn' t seem to be any correlation with how much she drinks. She does admit to using marijuana on a daily basis and has been told that marijuana can occasionally cause this type of symptomatology. She says she usually gets better with fluids and Reglan. She was nontoxic in appearance and had stable vital signs here but was retching. She did improve quite a bit with fluids and Reglan and her labs are within normal limits. She stated that her vomiting had improved but she continued to have some abdominal pain and had seen some blood in her vomitus. She did have some epigastric pain and tenderness at that time. She was given sucralfate and Protonix and got some relief from her pain. She was observed for a period of time longer and had no further vomiting and no obvious hematemesis. She was discharged in stable condition as I think this is likely a variant of cyclic vomiting syndrome. - Diagnoses Provider Diagnoses: Cyclical vomiting syndrome Discharge - Sign-Out/Discharge Documenting (check all that apply): Patient Departure - discharge home Patient Received Moderate/Deep Sedation with Procedure: No - Discharge Plan Condition: Stable Disposition: HOME Patient Education Materials: Cyclic Vomiting Syndrome (ED) Referrals: [facility] [Outside] Additional Instructions: Follow up with your primary care physician in 2-3 days. Return to the emergency room with any new or worsening symptoms. - Billing Disposition and Condition Condition: STABLE Disposition: Home - Attestation Statements Document Initiated by Scribe: Yes Documenting Scribe: Layne Mike Provider For Whom Scribe is Documenting (Include Credential): Pelon Tellez MD Scribe Attestation: Layne Zaldivar, scribed for Pelon Tellez MD on 10/27/18 at 1547. Scribe Documentation Reviewed: Yes Provider Attestation: The documentation as recorded by the scribe, Layne Mike accurately reflects the service I personally performed and the decisions made by me, Pelon Tellez MD Status of Scribe Document: Viewed
[2018-10-27 12:03] LABS: ABS Basophils 0.1 10^3/ul (0-0.2); ABS Eosinophils 0 10^3/ul (0-0.6); ABS Lymphocytes 1.3 10^3/ul (1.0-4.8); ABS Monocytes 0.7 10^3/ul (0-0.8); ABS Neutrophils 15.2 10^3/ul (1.5-7.7); ABS Nucleated RBC 0 10^3/ul; Eosinophil % 0.2 %; Hematocrit 43 % (33-41); Hemoglobin 14.4 g/dL (12.0-16.0); Lymphocyte % 7.8 %; Mean Corpuscular HGB Conc 34 g/dL (31-36); Mean Corpuscular Hemoglobin 30 pg (27-31); Mean Corpuscular Volume 89 fL (80-97); Mean Platelet Volume 8.5 fL (7.4-10.4); Nucleated Red Blood Cells % 0.1; Platelet Count 308 10^3/uL (150-450); Red Blood Count 4.78 10^6 /uL (3.70-4.87); Red Cell Distribution Width 13 % (10.5-15); White Blood Count 17.4 10^3/uL (3.5-10.8)
[2018-10-27 12:26] LABS: ALT 25 U/L (7-52); AST 20 U/L (13-39); Albumin 4.5 g/dL (3.2-5.2); Albumin/Globulin Ratio 1.5 (1-3); Alkaline Phosphatase 92 U/L (34-104); Anion Gap 9 mmol/L (2-11); BUN/Creatinine Ratio 16.4 (8-20); Blood Urea Nitrogen 9 mg/dL (6-24); C Reactive Protein 4.06 mg/L (<8.01); CO2 Carbon Dioxide 25 mmol/L (22-32); Calcium 9.1 mg/dL (8.6-10.3); Chloride 105 mmol/L (101-111); EGFR African American 168.8 (>60); EGFR Non-African American 139.5 (>60); Globulin 3.1 g/dL (2-4); Glucose 127 mg/dL (70-100); Potassium 3.7 mmol/L (3.5-5.0); Sodium 139 mmol/L (135-145); Total Protein 7.6 g/dL (6.4-8.9)
[2018-10-27 12:32] LABS: HCG Pregnancy < 0.60 mIU/mL
[2018-10-27] MEDS ORDERED: Pantoprazole IV* 40 MG IV ONE (13:13)
[2018-10-27] MEDS ORDERED: Sucralfate TAB* 1 GM PO ONE (13:13)
[2018-10-27 14:41] VITALS: BP 159/98
== END 2018-10-27 14:40 | disposition home or self-care (01) ==
LOC: ED 10:58
DX: G43.A0 Cyclical vomiting, in migraine, not intractable (principal)
CPT/HCPCS: 36415; 80053; 83605; 83690; 84702; 85025; 86140; 96361; 96374; 96375; 99283; A9270-GY; J2765

== ENCOUNTER 2018-11-04 11:39 | Emergency (ER) | payer OTHER ==
[2018-11-04] MEDS ORDERED: NS 0.9% 1000 ML** 1,000 ML IV ONE (11:41)
[2018-11-04] MEDS ORDERED: Metoclopramide IV* 5 MG/ML 2 ML VIAL IV ONE ×2 (11:42→13:22)
[2018-11-04 12:20] LABS: ABS Basophils 0 10^3/ul (0-0.2); ABS Eosinophils 0 10^3/ul (0-0.6); ABS Lymphocytes 1.5 10^3/ul (1.0-4.8); ABS Monocytes 0.9 10^3/ul (0-0.8); ABS Neutrophils 12.7 10^3/ul (1.5-7.7); ABS Nucleated RBC 0 10^3/ul; Eosinophil % 0.2 %; Hematocrit 44 % (33-41); Hemoglobin 14.7 g/dL (12.0-16.0); Lymphocyte % 9.8 %; Mean Corpuscular HGB Conc 34 g/dL (31-36); Mean Corpuscular Hemoglobin 30 pg (27-31); Mean Corpuscular Volume 89 fL (80-97); Mean Platelet Volume 8.5 fL (7.4-10.4); Nucleated Red Blood Cells % 0; Platelet Count 362 10^3/uL (150-450); Red Cell Distribution Width 13 % (10.5-15); White Blood Count 15.2 10^3/uL (3.5-10.8)
[2018-11-04 12:41] LABS: ALT 26 U/L (7-52); AST 21 U/L (13-39); Albumin 4.4 g/dL (3.2-5.2); Albumin/Globulin Ratio 1.6 (1-3); Alkaline Phosphatase 89 U/L (34-104); Amylase 67 U/L (29-103); Anion Gap 11 mmol/L (2-11); Blood Urea Nitrogen 8 mg/dL (6-24); C Reactive Protein 1.55 mg/L (<8.01); CO2 Carbon Dioxide 24 mmol/L (22-32); Chloride 103 mmol/L (101-111); EGFR Non-African American 133.9 (>60); Globulin 2.8 g/dL (2-4); Glucose 137 mg/dL (70-100); Magnesium 1.5 mg/dL (1.9-2.7); Potassium 2.8 mmol/L (3.5-5.0); Sodium 138 mmol/L (135-145); Total Protein 7.2 g/dL (6.4-8.9)
--- NOTE | 2018-11-04 12:43 | ED ---
Nausea/Vomiting/Diarrhea HPI - HPI Summary HPI Summary: Patient is a 22-year-old female who presents to the ED with the chief complaint of cyclic vomiting syndrome. She was seen in the ED last week and was given medications and fluids with relief. She states over the past several days, she has been feeling okay until Sunday (3 days ago on) in which she started to become nauseous again and subsequently vomiting. She states she has not been able to keep anything down since proximally Sunday. Symptoms are worsening. She does have Zofran at home, however without relief. She denies any specific abdominal pain, but states this is diffuse and occurred beginning after her vomiting symptoms. She denies any diarrhea or constipation. She denies any headache, sweats, chills, fevers. She states this is typical for her and feels like her previous episodes of cyclic vomiting syndrome. Symptoms are aggravated with eating and drinking, better with medications, however still present. She arrives to the ED by way of EMS. - History of Current Complaint Chief Complaint: EDNauseaVomitDiarrh Stated Complaint: ABD PAIN AND VOMITING PER EMS Time Seen by Provider: 11/04/18 11:41 Hx Obtained From: Patient Hx Last Menstrual Period: 04/05/18 ?: No Onset/Duration: Sudden Onset Timing: Constant Severity Initially: Moderate Severity Currently: Moderate Pain Intensity: 7 Pain Scale Used: 0-10 Numeric Location: Diffuse Character: Cramping Aggravating Factor(s): Food Alleviating Factor(s): Nothing, Medications Nausea/Vomiting Presence: Nauseated, Vomiting Vomiting Frequency: Every 15-60 minutes Nausea/Vomiting Duration: 24-36 hours Vomiting Characteristics: Retching Diarrhea Presence: No - Risk Factors Influenza Risk Factors: Negative Surgical Obstruction Risk Factor(s): Negative - Allergies/Home Medications Allergies/Adverse Reactions: Allergies Allergy/AdvReac Type Severity Reaction Status Date / Time peanut Allergy Swelling Verified 04/07/18 14:43 Tree Nuts Allergy Swelling Verified 04/07/18 14:43 PMH/Surg Hx/FS Hx/Imm Hx Previously Healthy: Yes Endocrine/Hematology History: Denies: Hx Anticoagulant Therapy, Hx Diabetes, Hx Thyroid Disease Cardiovascular History: Reports: Other Cardiovascular Problems/Disorders - POTS Denies: Hx Hypertension Respiratory History: Denies: Hx Asthma, Hx Chronic Obstructive Pulmonary Disease (COPD) GI History: Denies: Hx Ulcer Sensory History: Denies: Hx Contacts or Glasses, Hx Legally Blind, Hx Deafness, Hx Hearing Aid Opthamlomology History: Denies: Hx Contacts or Glasses, Hx Legally Blind Neurological History: Reports: Hx Migraine, Other Neuro Impairments/Disorders - POTS Psychiatric History: Reports: Hx Attention Deficit Hyperactivity Disorder, Hx Depression - Surgical History Surgery Procedure, Year, and Place: Appendectomy. - Immunization History Hx Pertussis Vaccination: No Immunizations Up to Date: Yes Infectious Disease History: No Infectious Disease History: Denies: Hx Hepatitis, Hx Human Immunodeficiency Virus (HIV), Traveled Outside the [place] in Last 30 Days - Family History Known Family History: Positive: Cardiac Disease, Diabetes - Father - Social History Occupation: Unemployed Lives: With Family Alcohol Use: Occasionally Hx Substance Use: Yes Substance Use Type: Reports: Marijuana Substance Use Comment - Amount & Last Used: daily Hx Tobacco Use: No Smoking Status (MU): Never Smoked Tobacco Review of Systems Constitutional: Negative Negative: Fever, Chills, Fatigue, Skin Diaphoresis Negative: Palpitations, Chest Pain Negative: Shortness Of Breath, Cough Positive: Abdominal Pain, Vomiting, Nausea. Negative: Diarrhea Genitourinary: Negative Positive: no symptoms reported, see HPI Negative: Arthralgia, Myalgia Skin: Negative Neurological: Negative All Other Systems Reviewed And Are Negative: Yes Physical Exam Triage Information Reviewed: Yes Vital Signs On Initial Exam: Initial Vitals Temp Pulse Resp BP Pulse Ox 98.1 F 86 18 165/111 98 11/04/18 11:51 11/04/18 11:51 11/04/18 11:51 11/04/18 11:51 11/04/18 11:51 Vital Signs Reviewed: Yes Appearance: Positive: Well-Appearing, Well-Nourished Skin: Positive: Warm, Skin Color Reflects Adequate Perfusion Head/Face: Positive: Normal Head/Face Inspection Eyes: Positive: EOMI, Conjunctiva Clear Neck: Positive: Supple, No Lymphadenopathy Respiratory/Lung Sounds: Positive: Clear to Auscultation, Breath Sounds Present Cardiovascular: Positive: RRR, Pulses are Symmetrical in both Upper and Lower Extremities Musculoskeletal: Positive: Normal, Strength/ROM Intact Neurological: Positive: Speech Normal Psychiatric: Positive: Normal, Affect/Mood Appropriate AVPU Assessment: Alert Diagnostics - Vital Signs Vital Signs Temp Pulse Resp BP Pulse Ox 11/04/18 11:51 98.1 F 86 18 165/111 98 - Laboratory Lab Results: Lab Results 11/04/18 11/04/18 Range/Units 12:09 12:09 WBC 15.2 H (3.5-10.8) 10^3/uL RBC 4.90 H (3.70-4.87) 10^6 /uL Hgb 14.7 (12.0-16.0) g/dL Hct 44 H (33-41) % MCV 89 (80-97) fL MCH 30 (27-31) pg MCHC 34 (31-36) g/dL RDW 13 (10.5-15) % Plt Count 362 (150-450) 10^3/uL MPV 8.5 (7.4-10.4) fL Neut % (Auto) 84.0 % Lymph % (Auto) 9.8 % [place] % (Auto) 5.7 % Eos % (Auto) 0.2 % Baso % (Auto) 0.3 % Absolute Neuts (auto) 12.7 H (1.5-7.7) 10^3/ul Absolute Lymphs (auto) 1.5 (1.0-4.8) 10^3/ul Absolute Monos (auto) 0.9 H (0-0.8) 10^3/ul Absolute Eos (auto) 0 (0-0.6) 10^3/ul Absolute Basos (auto) 0 (0-0.2) 10^3/ul Absolute Nucleated RBC 0 10^3/ul Nucleated RBC % 0 Lactic Acid 2.0 (0.5-2.0) mmol/L Result Diagrams: 11/04/18 12:09 11/04/18 12:09 Lab Statement: Any lab studies that have been ordered have been reviewed, and results considered in the medical decision making process. Naus/Vom/Diarrhea Course/Dx - Course Course Of Treatment: History of, the patient is evaluated for possible cyclic vomiting syndrome. Patient endorses emesis 10 times per hour 2-3 days. She has been unable to keep anything food or drink down. She is been taking Zofran without much relief. She states this typically does not work for her and he usually needs Reglan or promethazine. She arrives by EMS. She is actively vomiting on arrival, however is denying any specific abdominal tenderness. Denies any fevers, sweats, chills. Denies any cough or congestion. Denies any chest pain. Labs obtained which show leukocytosis of 15.4. She is given fluids , Reglan with some amount of relief. She is subsequently given more Reglan upon request and is okay for discharge at this time. She will be prescribed Reglan, Zofran as well as potassium chloride tabs. She is comfortable with discharge at this time and offers no complaints. She is asymptomatic. - Differential Dx/Diagnosis Provider Diagnosis: Cyclical vomiting Condition At Discharge: Stable Discharge - Sign-Out/Discharge Documenting (check all that apply): Patient Departure Patient Received Moderate/Deep Sedation with Procedure: No - Discharge Plan Condition: Stable Disposition: HOME Prescriptions: Metoclopramide TAB* [Reglan TAB*] 10 mg PO Q6H #12 tab Ondansetron ODT TAB* [Zofran 4 MG Odt TAB*] 4 mg PO Q6H PRN #12 tab.odt MDD 4 PRN Reason: Nausea Potassium Chlor TAB* [Potassium Chlor TAB 20 MEQ*] 40 meq PO DAILY #6 tab.er Patient Education Materials: Cyclic Vomiting Syndrome (ED) Referrals: No Primary Care Phys,NOPCP [Primary Care Provider] - Additional Instructions: Drink plenty of fluids Rice, chicken noodle soup, toast, applesauce, bananas - Billing Disposition and Condition Condition: STABLE Disposition: Home
[2018-11-04 12:44] LABS: HCG Pregnancy < 0.60 mIU/mL
[2018-11-04] MEDS ORDERED: Potassium Chlor TAB* 20 MEQ TAB.ER PO ONE (15:23)
[2018-11-04 15:59] VITALS: BP 137/86
== END 2018-11-04 15:58 | disposition home or self-care (01) ==
LOC: ED 11:39
DX: G43.A0 Cyclical vomiting, in migraine, not intractable (principal); A18.01 Tuberculosis of spine
CPT/HCPCS: 36415; 80053; 82150; 83605; 83690; 83735; 84702; 85025; 86140; 86703; 96361; 96374; 96376; 99283; A9270-GY; J2765

== ENCOUNTER 2019-08-18 17:10 | Emergency (ER) | payer OTHER ==
--- NOTE | 2019-08-18 17:37 | UC ---
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 She has a hx of intractable vomiting in the past, as well as POTS syndrome. She takes multiple medications including fludricortisone. She has not taken zofran today, took one dose of reglan, but no other medications today. She states that her vomiting is being triggered by stress of graduate work. She sees both GI and neurology, does have a hx of reflux and takes pantoprazole in addition to her other medications. - History of Current Complaint Chief Complaint: UCGeneralIllness Stated Complaint: VOMITING Time Seen by Provider: 08/18/19 17:30 Hx Obtained From: Patient Hx Last Menstrual Period: 04/05/18 Onset/Duration: Sudden Onset, Lasting Hours Timing: Intermittent Episodes Lasting: - minutes Pain Intensity: 10 Radiates: No Aggravating Factor(s): Food, Movement Alleviating Factor(s): Position Associated Signs and Symptoms: Positive: Nausea, Vomiting. Negative: Diaphoresis, Fever, Cough Allergies/Adverse Reactions: Allergies Allergy/AdvReac Type Severity Reaction Status Date / Time peanut Allergy Swelling Verified 08/18/19 17:32 Tree Nuts Allergy Swelling Verified 08/18/19 17:32 PMH/Surg Hx/FS Hx/Imm Hx Cardiovascular History: Other - orthostatic hypotension. Psychological History: Anxiety, Depression Other History Of: Negative For: Anticoagulant Therapy - Surgical History Surgical History: Yes Surgery Procedure, Year, and Place: Appendectomy. - Family History Known Family History: Positive: Cardiac Disease, Diabetes - Father - Social History Occupation: Student Lives: Dormitory/Roommates Alcohol Use: Occasionally Substance Use Type: Marijuana Substance Use Comment - Amount & Last Used: daily Smoking Status (MU): Never Smoked Tobacco - Immunization History Most Recent Influenza Vaccination: none Review of Systems All Other Systems Reviewed And Are Negative: Yes Constitutional: Positive: Fatigue Skin: Positive: Negative Eyes: Positive: Negative ENT: Positive: Negative Respiratory: Positive: Negative Cardiovascular: Positive: Negative Gastrointestinal: Positive: Vomiting, Nausea Genitourinary: Positive: Negative Motor: Positive: Negative Neurovascular: Positive: Negative Musculoskeletal: Positive: Negative Neurological: Positive: Negative Psychological: Positive: Anxious Is Patient Immunocompromised?: No Physical Exam Appearance: Ill-Appearing - Initially lying on floor of exam room. Pale. Blood pressure by pulse 104 systolic. Alert and coherent. Vital Signs: Initial Vital Signs Temp 96.6 F 08/18/19 17:15 Pulse 72 08/18/19 17:15 Resp 22 08/18/19 17:15 Pulse Ox 97 08/18/19 17:15 Eyes: Positive: Conjunctiva Clear ENT: Positive: Pharynx normal Neck: Positive: Supple, Nontender, No Lymphadenopathy Respiratory: Positive: Lungs clear, Normal breath sounds Cardiovascular: Positive: RRR, No Murmur Abdomen Description: Positive: Nontender, No Organomegaly, Soft Musculoskeletal Exam: Normal Neurological: Positive: Alert, Muscle Tone Normal Psychological Exam: Other - anxious. Skin Exam: Normal Re-Evaluation - Re-Evaluation First Eval Re-Evaluation Time: 18:35 Change: Improved Comment: still nauseated, still having some emesis, more relaxed. Second Eval Re-Evaluation Time: 20:00 Change: Unchanged Comment: persistent emesis. Exam shows a soft abdomen with mild tenderness, no guarding or rebound. Overall normal bowel sounds. Abd Pain Female Course/Dx - Course Course Of Treatment: IV fluids, rehydration, ondansetron, lorazepam given with persistent emesis. Advised transfer to ER for more extensive evaluation but she is thinking that she is well enough to go home. 20:25: declines transport to ER, but wants to try at home. Aware to proceed to ER if she has persistent symptoms. - Differential Dx/Diagnosis Differential Diagnosis: Appendicitis, Peptic Ulcer Disease, Other - cyclic vomiting, POTS syndrome, dehydration. Provider Diagnosis: Cyclic vomiting syndrome Discharge ED - Sign-Out/Discharge Documenting (check all that apply): Patient Departure All imaging exams completed and their final reports reviewed: No Studies - Discharge Plan Condition: Stable Disposition: HOME Prescriptions: Ondansetron ODT TAB* [Zofran 4 MG Odt TAB*] 4 mg PO Q6H PRN #10 tab.odt PRN Reason: Vomiting Patient Education Materials: Acute Nausea and Vomiting (ED) Forms: *Work Release Referrals: No Primary Care Phys,NOPCP [Primary Care Provider] - Additional Instructions: IF YOUR VOMITING PERSISTS, I URGE YOU TO GO TO THE EMERGENCY ROOM FOR ASSESSMENT , BECAUSE MORE TESTING WILL BE NEEDED THAN CAN BE PROVIDED HERE. cONTINUE ONDANSETRON 4MG EVERY 6 HOURS NEEDED FOR NAUSEA. ENSURE THAT YOU TAKE YOUR PROTONIX AND FLUOXETINE TOMORROW DIRECTED. YOU MIGHT TRY EATING SOME CRACKERS OR NOODLES BUT DO NOT TAKE WITH FLUIDS--IF YOU TRY SOLIDS TAKE THEM AT LEAST 30 MINUTES AFTER FLUIDS. - Billing Disposition and Condition Condition: STABLE Disposition: Home
[2019-08-18] MEDS ORDERED: NS 0.9% 1000 ML** 1,000 ML IV ONE ×2 (17:39→18:37)
[2019-08-18] MEDS ORDERED: Ondansetron INJ* 2 MG/ML VIAL IV ONE ×2 (17:40→18:37)
[2019-08-18] MEDS ORDERED: Lorazepam PYXIS KEY PRN ×2 (17:55→18:02)
[2019-08-18] MEDS ORDERED: LORazepam INJ* 2 MG/ML 1 ML VIAL IV PUSH ONE ×2 (17:55→18:02)
[2019-08-18] MEDS ORDERED: LORazepam TAB(*) 1 MG PO ONE (18:00)
[2019-08-18] MEDS ORDERED: Ondansetron ODT TAB* 4 MG PO ONE (20:23)
[2019-08-18 20:29] VITALS: BP 142/92
== END 2019-08-18 21:04 | disposition home or self-care (01) ==
LOC: UCEAST 17:10
DX: R11.15 Cyclical vomiting syndrome unrelated to migraine (principal); R53.83 Other fatigue; Z91.018 Allergy to other foods; Z91.010 Allergy to peanuts
CPT/HCPCS: 81003; 84702; 96360; 96361; 96374; 96375; 96376; 99212; A9270-GY; G0463; J2060; J2405

== ENCOUNTER 2019-08-20 07:23 | Observation (INO) | payer OTHER ==
[2019-08-20] MEDS ORDERED: NS 0.9% 1000 ML** 1,000 ML IV ONE ×3 (07:39→12:15)
[2019-08-20] MEDS ORDERED: diPHENhydraMINE IV* 50 MG/ML 1 ml VIAL (BENADRYL) IV ONE ×2 (07:39→09:22)
[2019-08-20] MEDS ORDERED: Metoclopramide IV* 5 MG/ML 2 ML VIAL IV ONE ×2 (07:39→10:48)
[2019-08-20] MEDS ORDERED: Ketorolac INJ* 30 MG/ML 1 ML VIAL IV PUSH ONE (07:39)
[2019-08-20] MEDS ORDERED: Lorazepam PYXIS KEY PRN (07:40)
[2019-08-20] MEDS ORDERED: LORazepam INJ* 2 MG/ML 1 ML VIAL IV PUSH ONE (07:40)
--- NOTE | 2019-08-20 07:44 | ED ---
GI/ HPI - HPI Summary HPI Summary: 23 year old F presenting to [facility] accompanied by mother complains of emesis since 0600 08/20/2019. Patient reports PMHx of POTS and cyclic vomiting that last for around 12 hours per mother. Pt went to Urgent Care on Sunday for an episode and was given fluids. She woke up for work this morning with emesis and has been to [facility] for this problem before. No PMHx of diabetes. SHx of appendectomy. SocHx of often marijuana use but denies alcohol use. The patient rates the pain 9/10 in severity. Symptoms aggravated by stress and infection. Symptoms alleviated by nothing. - History of Current Complaint Chief Complaint: EDNauseaVomitDiarrh Time Seen by Provider: 08/20/19 07:33 Stated Complaint: NAUSEA/VOMITING/DIZZY PER PT Hx Obtained From: Family/Estimator [employer] - mother Hx Last Menstrual Period: 04/05/18 Onset/Duration: Started Hours Ago, Still Present Timing: Lasting Hours Current Severity: Severe Pain Intensity: 9 Associated Signs and Symptoms: Positive: Vomiting - Has PMHx of cyclic vomiting that last around 12 hours Aggravating Factor(s): Nothing Alleviating Factor(s): Nothing - Additional Pertinent History Primary Care Physician: [id number] - Allergy/Home Medications Allergies/Adverse Reactions: Allergies Allergy/AdvReac Type Severity Reaction Status Date / Time peanut Allergy Swelling Verified 08/20/19 07:30 Tree Nuts Allergy Swelling Verified 08/20/19 07:30 Home Medications: Home Medications Norgestimate-Ethinyl Estradiol [Ozk-Uq-Yfaroa 0.18/0.215/0.25 mg-25 Mcg] 1 tab PO DAILY 08/20/19 [History Confirmed 08/20/19] PMH/Surg Hx/FS Hx/Imm Hx Endocrine/Hematology History: Denies: Hx Anticoagulant Therapy, Hx Diabetes, Hx Thyroid Disease Cardiovascular History: Reports: Other Cardiovascular Problems/Disorders - POTS Denies: Hx Hypertension Respiratory History: Denies: Hx Asthma, Hx Chronic Obstructive Pulmonary Disease (COPD) GI History: Denies: Hx Ulcer Sensory History: Denies: Hx Contacts or Glasses, Hx Legally Blind, Hx Deafness, Hx Hearing Aid Opthamlomology History: Denies: Hx Contacts or Glasses, Hx Legally Blind Neurological History: Reports: Hx Migraine, Other Neuro Impairments/Disorders - POTS Psychiatric History: Reports: Hx Attention Deficit Hyperactivity Disorder, Hx Depression - Surgical History Surgery Procedure, Year, and Place: Appendectomy. Infectious Disease History: No Infectious Disease History: Denies: Hx Hepatitis, Hx Human Immunodeficiency Virus (HIV), Traveled Outside the [place] in Last 30 Days - Family History Known Family History: Positive: Cardiac Disease, Diabetes - Father - Social History Alcohol Use: Occasionally Hx Substance Use: Yes Substance Use Type: Reports: Marijuana Substance Use Comment - Amount & Last Used: daily Hx Tobacco Use: No Smoking Status (MU): Never Smoked Tobacco Review of Systems Negative: Fever Positive: Vomiting - PMHx of cylic vomiting All Other Systems Reviewed And Are Negative: Yes Physical Exam - Summary Physical Exam Summary: Constitutional: Well-developed, Well-nourished, Alert. (-) Distressed Skin: Warm, Dry HENT: Normocephalic; Atraumatic Eyes: Conjunctiva normal Neck: Musculoskeletal ROM normal neck. (-) JVD, (-) Stridor, (-) Tracheal deviation Cardio: Rhythm regular, rate normal, Heart sounds normal; Intact distal pulses; The pedal pulses are 2+ and symmetric. Radial pulses are 2+ and symmetric. (-) Murmur Pulmonary/Chest wall: Effort normal. (-) Respiratory distress, (-) Wheezes, (-) Rales Abd: Generalized abd tenderness, no distension Musculoskeletal: (-) Edema Lymph: (-) Cervical adenopathy Neuro: Alert, Oriented x3 Psych: Mood and affect Normal Triage Information Reviewed: Yes Vital Signs On Initial Exam: Initial Vitals Temp Pulse Resp BP Pulse Ox 97.4 F 65 18 167/108 97 08/20/19 07:26 08/20/19 07:26 08/20/19 07:26 08/20/19 07:26 08/20/19 07:26 Vital Signs Reviewed: Yes Procedures - Sedation Patient Received Moderate/Deep Sedation with Procedure: No Diagnostics - Vital Signs Vital Signs Temp Pulse Resp BP Pulse Ox 08/20/19 07:26 97.4 F 65 18 167/108 97 - Laboratory Result Diagrams: 08/20/19 07:44 08/20/19 07:44 Lab Statement: Any lab studies that have been ordered have been reviewed, and results considered in the medical decision making process. GIGU Course/Dx - Course Course Of Treatment: 23 year old F presenting to [facility] complains of emesis since 0600 08/20/2019. Patient reports a PMHx of POTS and cyclic vomiting that last for around 12 hours per mother. Physical exam findings: generalized abd tenderness, no distension. Bloodwork results with no significant abnormalities except for H MCH, L Potassium, H Anion Gap, H BUN/Creatinine Ratio, H Glucose, H AST, H ALT, L Lipase. In the ED course, the patient was given 1 mg IV Lorazepam INJ, 25 mg IV Diphenhydramine, Ns, 10 mg IV Metoclopramide, 30 mg IV Ketorolac. We discussed patient care with who recommended admission. The patient will be admitted to the hospitalist. The patient is agreeable with this plan. - Diagnoses Provider Diagnoses: Cyclical vomiting - Physician Notifications Discussed Care Of Patient With: Jose York - admit Instructed by Provider To: Admit As Inpatient Discharge ED - Sign-Out/Discharge Documenting (check all that apply): Patient Departure - admit - Discharge Plan Condition: Stable Disposition: ADMITTED TO [facility] Referrals: No Primary Care Phys,NOPCP [Primary Care Provider] - - Billing Disposition and Condition Condition: STABLE Disposition: Admitted to [facility] - Attestation Statements Document Initiated by Capoibe: Yes Documenting Scribe: Scott Dean Provider For Whom Petra is Documenting (Include Credential): Ulisses Santos DO Scribe Attestation: Scott Zaldivar scribed for Ulisses Santos DO on 08/20/19 at 1418. Scribe Documentation Reviewed: Yes Provider Attestation: The documentation as recorded by the Scott hubbard accurately reflects the service I personally performed and the decisions made by , Ulisses Santos DO Status of Scribrebecca Document: Viewed
[2019-08-20 08:01] LABS: ABS Basophils 0.1 10^3/ul (0-0.2); ABS Eosinophils 0.1 10^3/ul (0-0.6); ABS Lymphocytes 2.3 10^3/ul (1.0-4.8); ABS Monocytes 0.8 10^3/ul (0-0.8); ABS Neutrophils 7.1 10^3/ul (1.5-7.7); Eosinophil % 0.8 %; Hematocrit 41 % (35-47); Hemoglobin 15.1 g/dL (12.0-16.0); Mean Corpuscular HGB Conc 36 g/dL (31-36); Mean Corpuscular Hemoglobin 32 pg (27-31); Mean Corpuscular Volume 88 fL (80-97); Mean Platelet Volume 8.7 fL (7.4-10.4); Platelet Count 365 10^3/uL (150-450); Red Cell Distribution Width 13 % (10-15); White Blood Count 10.4 10^3/uL (3.5-10.8)
[2019-08-20 08:14] LABS: ALT 107 U/L (7-52); AST 45 U/L (13-39); Albumin 4.5 g/dL (3.2-5.2); Albumin/Globulin Ratio 1.4 (1-3); Alkaline Phosphatase 87 U/L (34-104); Anion Gap 12 mmol/L (2-11); BUN/Creatinine Ratio 22.1 (8-20); Blood Urea Nitrogen 17 mg/dL (6-24); C Reactive Protein 3.34 mg/L (<8.01); CO2 Carbon Dioxide 22 mmol/L (22-32); Calcium 9.5 mg/dL (8.6-10.3); Chloride 103 mmol/L (101-111); EGFR African American 113.4 (>60); EGFR Non-African American 93.7 (>60); Globulin 3.2 g/dL (2-4); Glucose 190 mg/dL (70-100); Potassium 3.1 mmol/L (3.5-5.0); Sodium 137 mmol/L (135-145); Total Protein 7.7 g/dL (6.4-8.9)
[2019-08-20 08:20] LABS: HCG Pregnancy < 0.60 mIU/mL
[2019-08-20] MEDS ORDERED: Potassium Chlor TAB* 20 MEQ TAB.ER PO ONE (08:42)
[2019-08-20] MEDS ORDERED: KCL 10 MEQ/50 ML IVPREMIX* 10 MEQ/50 ML BAG ONE (09:08)
[2019-08-20] MEDS ORDERED: KCL 10 MEQ/50 ML IVPREMIX* 10 MEQ/50 ML BAG IV ONE (09:10)
[2019-08-20] MEDS ORDERED: Ondansetron INJ* 2 MG/ML VIAL IV ONE (09:22)
[2019-08-20 09:43] LABS: Erythrocyte Sed Rate 7 mm/Hr (0-19)
[2019-08-20] MEDS ORDERED: Ondansetron INJ* 2 MG/ML VIAL IV PRN (14:57)
[2019-08-20] MEDS ORDERED: Metoclopramide IV* 5 MG/ML 2 ML VIAL IV SLOW PU PRN (15:21)
[2019-08-20] MEDS ORDERED: Metoclopramide IV* 5 MG/ML 2 ML VIAL IV SLOW PU SCH (16:00)
--- NOTE | 2019-08-20 17:29 | HP ---
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 ATTENDING PHYSICIAN: Dr. York.* (DICTATED BY ELADIO MCLAIN NP) CHIEF COMPLAINT: Nausea and vomiting. HISTORY OF PRESENT ILLNESS: Ms. Mena is a 23-year-old female who presented to the emergency department today with chief complaint of cyclic nausea and vomiting. She states that on 08/18/19 she was starting to feel nauseous midday, had episodes of vomiting, went to the urgent care, received IV fluids along with some Zofran and Ativan. She was given a prescription for Zofran and was sent home. She states that yesterday on 08/19/19 she was feeling a little bit better; however, was feeling dehydrated and then this morning around 6 a.m. started back with cyclic nausea and vomiting. She states that the first episode happened about 4 years ago. Episodes usually last for approximately 12 hours and then she will have a recovery period when she will hydrate herself and she states that these episodes happen about every 2 months or so. She denies any known triggers. She denies any recent restaurant new foods or fast food places. She states that she has seen a neurologist in the past who thought that she might have abdominal migraines. She does note in the past she has been known to have a delayed alcohol sensitivity, may only have 1 drink or so and usually the next day she will be very nauseous. She does smoke marijuana 1 to 2 times daily. Last time she smoked marijuana was yesterday. She states that she has been smoking marijuana for at least the amount of time that she has been having these episodes. States that she did take a short break at one point from smoking marijuana, had an episode of cyclic nausea and vomiting and assumed that that was not in relation to these episodes, so she started back up again. States that pretty much every morning she wakes up she does feel nauseous, sometimes will have a small amount of emesis and then will usually just go on about her day without anymore nausea or vomiting. Denies any recent fever, chills, visual changes, headaches, chest pain, palpitations, shortness of breath, difficulty with urination or blood in urine, unusual muscle aches or joint stiffness, rashes, lesions or wounds. She states that she has been rather stressed out lately and thinks that this may be a trigger for these episodes. 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 She does state that since about mid July she has had small amounts of diarrhea in the mornings, denies any blood in her stool and then will usually have soft BMs later in the day. Today, in the emergency department, she received 3 L of IV fluid, 2 doses of Benadryl, 2 doses of Reglan, Toradol, Ativan, and Zofran. Her potassium level was 3.1. She did get 1 run of KCl 10 mEq IV. Hospital Medicine was asked to evaluate the patient for admission. The patient states that a surrogate decision maker for her would be her mother, Melissa Mena. The patient complains of sinus type of upper respiratory illness and congestion for approximately 1 to 2 weeks prior to episode of cyclical nausea and vomiting on 08/18/19. Currently denies pain, but states that when she is having an episode of nausea and vomiting she will have generalized abdominal cramping. PAST MEDICAL HISTORY: 1. Postural orthostatic tachycardia syndrome. 2. Migraines. 3. ADHD. 4. Depression. 5. Anxiety. 6. Alcohol sensitivity. PAST SURGICAL HISTORY: 1. Appendectomy. 2. Ryder tooth extraction. HOME MEDICATIONS: 1. Iom-Ow-Gaczbl 0.18/0.215/0.25 mg-25 mcg 1 tab p.o. daily. 2. Florinef 0.2 mg p.o. daily. 3. Prozac 30 mg p.o. daily. 4. Topamax, unsure of dose, but takes 3 tabs at night. 5. Imitrex 50 mg p.o. up to 4 times daily. ALLERGIES: 1. PEANUTS. 2. TREE NUTS. No known drug allergies. FAMILY HISTORY: Father with diabetes mellitus and cardiac disease. Mother with hypothyroidism and gallbladder disease. Sister with gallbladder disease. Maternal grandfather with an DE. Maternal grandmother with non-Hodgkin's lymphoma. SOCIAL HISTORY: The patient is a student. 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 She lives in an off-campus apartment. She denies any tobacco use. States that she may have 1 drink per month, but denies any recent alcohol use. Does smoke marijuana daily. REVIEW OF SYSTEMS: A 10-point review of systems was completed with this patient. See HPI for all pertinent positives and negatives. PHYSICAL EXAMINATION CONSTITUTIONAL: The patient is sitting up in bed, appears to be in no acute distress, able to engage in conversation and participate with exam. VITAL SIGNS: Temp 97.4, heart rate 81, O2 saturation 97% on room air, blood pressure 133/82. HEENT: PERRLA. No scleral icterus. NECK: Supple. LYMPHATIC: Small soft movable right anterior cervical node palpated. No other cervical or supraclavicular lymphadenopathy noted. RESPIRATORY: Lung sounds clear throughout bilaterally. Normal rate and effort. CARDIOVASCULAR: Heart rate regular. S1, S2 present. No murmurs, rubs, or gallops noted. GI: Bowel sounds x4. Abdomen is soft, nontender. EXTREMITIES: No edema. MUSCULOSKELETAL: Range of motion and strength within normal limits to all extremities. NEURO: Alert and oriented x3. Cranial nerves grossly intact. PSYCH: Responds appropriately. Normal affect. SKIN: Warm, dry, and intact. DIAGNOSTIC STUDIES/LAB DATA: WBC 10.4, RBC 4.7, hemoglobin 15.1, hematocrit 41 , MCV 88, MCH 32, platelet count 365. Sodium 137, potassium 3.1, chloride 103, carbon dioxide 22, anion gap 12, BUN 17, creatinine 0.77, estimated GFR 93.7, BUN/creatinine ratio 22.1, glucose 190, calcium 9.5. Total bili 0.7, AST 45, ALT 107, alk phosphatase 87. CRP 3.34. Lipase less than 10. Beta hCG less than 0.6. ASSESSMENT AND PLAN: is a pleasant 23-year-old female with past medical history significant for recurrent episodes of cyclic nausea and vomiting , postural orthostatic tachycardia syndrome, migraines, attention deficit hyperactivity disorder, anxiety, depression, and reported alcohol sensitivity. She presented to the emergency department today for complaints of cyclic nausea and vomiting. She was noted to be hypokalemic as well this morning. [facility] was asked to evaluate Ms. Mena for admission. 1. Cyclical nausea and vomiting. The patient has had many episodes such as this in the past. She does not always report to the emergency department. Cannabinoid hyperemesis syndrome is high on the list of differentials at this point. GI consult ordered. Continue maintenance IV fluids. Antinausea medication PRN. 2. Hypokalemia. Potassium 3.1 this morning. Did receive 1 run of KCl 10 mEq in the ED. Two more runs of KCl 10 mEq ordered. Labs ordered for the a.m. 3. Postural orthostatic tachycardia syndrome. Chronic condition. Continue Florinef 0.2 mg p.o. daily. 4. Anxiety and depression. We will continue usual medication. 5. FEN: The patient can have a clear liquid diet as tolerated and we will continue with fluid and electrolyte replacement. 6. Code status: Full code. 7. DVT prophylaxis: MAMI olmstead. Consults: GI has been consulted. TIME SPENT: Approximately 70 minutes was spent on this admission with half of that being [id number] with the patient and her family member for interview, physical assessment, and reviewing the plan of care. Case reviewed by my attending physician, Dr. York, and he agrees with the plan. ELADIO MCLAIN NP [id number]/[facility] #: [id number] WANDA
[2019-08-20] MEDS: NS 0.9% 1000 ML** 1,000 ML IV SCH (17:30)
[2019-08-20] MEDS: KCL 10 MEQ/50 ML IVPREMIX* 10 MEQ/50 ML BAG IV SCH ×2 (17:30→20:24)
--- NOTE | 2019-08-20 20:23 | CONS ---
GASTROENTEROLOGY CONSULTATION REPORT: DATE OF CONSULT: 08/20/19 REASON FOR CONSULT: Nausea, vomiting. HISTORY OF PRESENT ILLNESS: Ms. Mena is a 23-year-old woman with a history of POTS, cyclic vomiting syndrome, anxiety/depression, ADHD, migraines, who is admitted for nausea and vomiting. To review relevant history, Ms. Mena has had episodes of significant nausea and vomiting for the past 4 years. She has been to the ED multiple times and was told that she most likely has cyclic vomiting syndrome. She has been seen by a GI doctor in [place]. Underwent an endoscopy over the summer, which was reportedly normal. Ultrasound of the patient's abdomen demonstrated fatty liver without any concern for gallbladder disease. Ms. Mena typically has an episode of severe nausea and vomiting every 2 months or so. The vomiting usually lasts 12 hours. She feels unwell and tired for several days afterwards. During these episodes she has mild diarrhea and abdominal cramping with bloating. Between the episodes, she reports daily nausea. The nausea is mostly in the morning and is typically associated with 1 episode of vomiting. She usually feels much better after this vomiting. She has noticed that taking a warm shower helps with nausea symptoms. She has some bloating and abdominal cramping intermittently at baseline. She has several semi-formed bowel movements per day. After the episodes of nausea and vomiting, she tends to have reflux symptoms for a week or 2. She is on pantoprazole daily. In regards to the current presentation, Ms. Mena began having nausea and vomiting on Sunday. She went to [facility] and received IV fluids. She went home and continued to not feel well on Sunday. On Sunday, she woke up and developed nausea with multiple episodes of vomiting. She continued to feel poorly and presented to the ED for evaluation. In the ED, vital signs were notable for absence of temperature, normal heart rate and normal blood pressure. Labs demonstrated potassium of 3.1 and glucose of 190. AST 145, ALT 107, lipase was not detectable. No imaging was performed. The patient was given multiple antiemetics and IV fluid without improvement in symptoms. Admitted to medicine. GI consulted. On interview, Ms. Mena says that she is currently feeling a bit better. Last episode of vomiting was approximately 2 hours ago. She is still having some mild abdominal cramping and dizziness. Ms. Mena smokes marijuana 1 to 2 times a day. She is aware of the association between habitual marijuana use and cannabis hyperemesis. She thinks in November she went a week without smoking marijuana, but that is the longest she has gone in some time. She has a history of migraines for which she is on Topamax for prophylaxis. She uses Imitrex for the migraines. She estimates that she has about 2 migraines a month. She also uses Aleve and Advil intermittently. Estimates nonsteroidal use once a week or so. PAST MEDICAL HISTORY: 1. POTS. 2. Anxiety/depression. 3. ADHD. 4. Cyclic vomiting syndrome. 5. Migraines. PAST SURGICAL HISTORY: Appendectomy. MEDICATIONS: The patient reports that she uses Florinef, Concerta, Ritalin, Prozac, Protonix, Topamax, Imitrex, OCP. ALLERGIES: Allergies are to PEANUTS and TREE NUTS. FAMILY HISTORY: Mother and sister with gallbladder disease status post cholecystectomies. No other GI or liver disease in the family. 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 No significant alcohol use. Estimates that she drinks 1 drink per month. Daily marijuana use 1 to 2 times a day. No other drug use. No tobacco use. PHYSICAL EXAMINATION: Vital Signs: Temp 99.3, heart rate 84, blood pressure 121/77, 97% on room air. General: Tired, but well-appearing young woman. No acute distress. Mother at bedside. HEENT: Mucous membranes are moist. Cardiovascular: Regular rate and rhythm. Pulmonary: Breathing comfortably. Abdomen: Soft, nontender, nondistended. Extremities: No significant edema. A and O x3. Skin: No jaundice. DIAGNOSTIC STUDIES/LAB DATA: Labs were reviewed. White count 10.4, hemoglobin 15.1, hematocrit 41, platelet count 365. Sodium 137, potassium 3.1, chloride 103, carbon dioxide 22, BUN 17, creatinine 0.77, glucose 190, magnesium 1.5, AST 45, ALT 107, alk phos 87, bilirubin 0.7, lipase less than 10, beta-hCG negative. Imaging: None available. IMPRESSION AND RECOMMENDATION: Ms. Mena is a 23-year-old woman with a history of episodic nausea and vomiting labeled as cyclic vomiting syndrome, postural orthostatic tachycardia syndrome, anxiety/depression, attention deficit hyperactivity disorder, and migraine, who was admitted with recurrent nausea and vomiting. Ms. Mena has a long history of episodic nausea and vomiting going back at least 4 years. She has been labeled with cyclic vomiting syndrome although I do wonder since then her symptoms are related to her habitual cannabis use. There certainly can be some overlap between cyclic vomiting syndrome and cannabis hyperemesis syndrome. The patient does have a history of migraines, which is certainly an association with cyclic vomiting syndrome. Additionally, POTS is also a condition that is often comorbid with cyclic vomiting syndrome. The patient has had a analytical research chemist see her in the past. She reportedly had an endoscopy over the summer that was unremarkable. If the patient's symptoms fail to improve tomorrow, then we could consider repeating an upper endoscopy as this current presentation is unusual for her typical episodes of vomiting and nausea. Otherwise, I would encourage continued efforts to manage her symptoms with antiemetics. We will continue IV fluids. Can advance diet slowly as tolerated. I recommend that the patient discontinue marijuana use. We will also recommend that she follow up in clinic as there are some treatment options for cyclic vomiting syndrome including prophylactic medication like amitriptyline and abortive therapy like intranasal sumatriptan. Additionally, I would recommend starting riboflavin 200 mg twice daily and coenzyme Q10 200 mg twice daily. There is some evidence to suggest that these supplements can be helpful for the patients with cyclic vomiting syndrome. Thank you very much for this consult. GI will continue to follow along. [id number]/[facility] #: [id number] WANDA
[2019-08-21] MEDS: NS 0.9% 1000 ML** 1,000 ML IV SCH (03:47)
[2019-08-21 07:24] LABS: Albumin 3.8 g/dL (3.2-5.2); Albumin/Globulin Ratio 1.4 (1-3); BUN/Creatinine Ratio 9.4 (8-20); Calcium 8.5 mg/dL (8.6-10.3); EGFR African American 174.5 (>60); EGFR Non-African American 144.2 (>60); Globulin 2.7 g/dL (2-4); Potassium 3.7 mmol/L (3.5-5.0); Total Bilirubin 0.8 mg/dL (0.2-1.0); Total Protein 6.5 g/dL (6.4-8.9)
[2019-08-21] MEDS ORDERED: NORGESTIMATE ETHINYL ESTRADIOL PO SCH ×2 (09:00)
[2019-08-21] MEDS ORDERED: Fludrocortisone Acetate TAB* 0.1 MG PO SCH ×2 (09:00)
[2019-08-21] MEDS ORDERED: FLUoxetine CAP* 10 MG PO SCH (09:00)
[2019-08-21 09:01] LABS: Magnesium 1.9 mg/dL (1.9-2.7)
[2019-08-21 09:33] LABS: TSH (Thyroid Stimulating Horm) 0.9 mcIU/mL (0.34-5.60)
[2019-08-21] MEDS ORDERED: Acetaminophen TAB* 325 MG PO PRN (10:49)
[2019-08-21 14:21] VITALS: BP 119/78
--- NOTE | 2019-08-22 01:01 | DS ---
CC: [facility]; Dr. Leyda Mackey * DISCHARGE SUMMARY: DATE OF ADMISSION: 08/20/19 DATE OF DISCHARGE: 08/21/19 PRIMARY CARE PROVIDER: Marlen Kent. OTHER PROVIDER: Dr. Leyda Mackey. ATTENDING PHYSICIAN: Dr. Juanis Rodgers * (dictated by ERIK Urban). PRIMARY DIAGNOSES: Cyclic nausea, vomiting, broad differential including cyclic vomiting syndrome, abdominal migraines, cannabis hyperemesis. SECONDARY DIAGNOSES: 1. Postural orthostatic tachycardia syndrome. 2. Cyclic vomiting syndrome. 3. Migraines. 4. Attention deficit hyperactivity disorder. 5. Anxiety/depression. STUDIES WHILE IN THE HOSPITAL: None. CONSULTATIONS WHILE IN THE HOSPITAL: Gastroenterology. Ms. Mena has a long history of episodic nausea and vomiting going back at least 4 years, has been labeled with cyclic vomiting syndrome although I do wonder since her symptoms are related to her habitual cannabis use, certainly overlapped between cyclic vomiting syndrome and cannabis hyperemesis syndrome. The patient does have a history of migraines certainly associated with cyclic vomiting syndrome. Additionally, POTS is also a condition that is often comorbid with cyclic vomiting syndrome. The patient has had a dye range tender here in the past, reportedly had an endoscopy over the summer that was unremarkable. If symptoms failed to improve tomorrow, we could consider repeating upper endoscopy, otherwise encourage continued efforts to manage her symptoms with antiemetics, continue IV fluids, advance diet slowly as tolerated, recommend discontinue marijuana use, recommend follow up with clinic as there are some treatment options for cyclic vomiting syndrome including prophylactic medications like amitriptyline and abortive therapy like intranasal sumatriptan. Additionally, recommend starting riboflavin 200 mg p.o. b.i.d., Coenzyme Q10 200 mg b.i.d. Some evidence suggests that these supplements can be helpful for the patient with cyclic vomiting syndrome. GI will continue to follow along. DISCHARGE MEDICATIONS: Home medications: 1. Concerta 18 mg p.o. daily. 2. Florinef 0.2 mg p.o. daily. 3. Ejd-Vh-Ttrgbr tablet 1 tab p.o. daily. 4. Pantoprazole p.o. daily. 5. Prozac 30 mg p.o. daily. 6. Ritalin 10 mg p.r.n. 7. Topamax 75 mg p.o. daily. New home medications: 1. Amitriptyline 25 mg p.o. at bedtime. 2. Metoclopramide 10 mg p.o. q.8 hours p.r.n. nausea, vomiting; recommend adding Benadryl 25 when taking this medication. 3. Riboflavin 100 mg p.o. daily. 4. Sumatriptan 5 mg 1 actuation intranasally x1 at onset of nausea/vomiting; may repeat x1 after 2 hours if symptoms persist. 5. CoQ10 200 mg p.o. b.i.d. HISTORY OF PRESENT ILLNESS/HOSPITAL COURSE: Ms. Mena is a 23-year-old female with a past medical history of POTS, migraines, cannabis use, cyclic vomiting syndrome, who presented to the ER with complaints of nausea and vomiting. For full and complete details, please see the history and physical dictated by Sue Lu NP, but in short, the patient states her symptoms began approximately 2 days prior to arrival with nausea and vomiting. Urgent care provided her with IV fluids and Zofran. She reportedly started to feel better but then developed nausea and vomiting again. She has had these cyclic symptoms for approximately 4 years and differentials include abdominal migraines as she has a history of migraines, cyclic vomiting syndrome, which is occasionally associated with POTS and cannabis hyperemesis as she does have a history of regular marijuana use. Gastroenterology was consulted and recommended IV fluid hydration, riboflavin, CoQ10, and possible endoscopy if symptoms persist. The patient was admitted the following day. The patient reports that she feels much better. She reports that Reglan improves her nausea and vomiting greatly. We had a long discussion about how to manage these and ultimately the patient will need further workup. In the meantime, she will be placed on amitriptyline prophylactically and sumatriptan as abortive therapy for possible abdominal migraines. She was encouraged to keep a diary of symptoms with included information on recent foods and effectiveness of medication. She will also be discharged on riboflavin and CoQ10. She will follow up with Gastroenterology within 1 to 2 weeks. She was asked to call the office for an appointment. She was encouraged to discontinue marijuana use as her migraines may be associated with marijuana use. The patient is eager for discharge. She is tolerating oral intake well and has no nausea or vomiting at this time. She has used 1 dose of Reglan on the day of admission but has had no antiemetics on the day of discharge. She is eating well. She reports a recent bowel movement. She has no dizziness, lightheadedness, vision changes, chest pain, shortness of breath, cough, fever, chills, abdominal pain, nausea, vomiting, diarrhea, constipation, myalgias or arthralgias. Ms. Mena is stable for discharge home. PHYSICAL EXAMINATION: Vital Signs: Temperature 98.1 oral, heart rate 66, respiratory rate 18, oxygen saturation 100% on room air, blood pressure 119/78. General: Ms. Mena is a well-developed, well-nourished, young white female who is sitting up in bed. She is pleasant, cooperative, and appears to be in no acute distress. HEENT: PERRL. EOMI. Nonicteric sclerae. Hearing is grossly intact. Oral mucous membranes are moist. There are no lesions. The pharynx is clear. Tongue is at midline. Palate elevates symmetrically. Cardiovascular: Regular rate and rhythm with S1, S2 present. No murmurs, rubs, clicks, or gallops. There is no JVD or peripheral edema. Pulmonary: Symmetrical chest expansion without use of accessory muscles, clear to auscultation bilaterally without rhonchi, wheezes or rales. Abdomen: Bowel sounds in all quadrants, normoactive. Abdomen is soft and tender to palpation. There is no hepatosplenomegaly. Musculoskeletal: Full range of motion without pain or deformities. Neuro: The patient is awake. She is alert and oriented x3 with cranial nerves II through XII grossly intact. DISCHARGE PLAN: Ms. Mena will be discharged to home. CONDITION: Good. DIET: Resume home diet. ACTIVITY: As tolerated. MEDICATIONS: 1. Start amitriptyline daily, starting tomorrow. 2. Start intranasal sumatriptan at onset of nausea and/or vomiting, may repeat x1 two hours later if symptoms do not resolve. 3. Reglan prescription provided, consider taking Benadryl 25 mg p.o. with Reglan. 4. Start riboflavin, CoQ10 daily as directed. EDUCATION: 1. Keep a log of symptoms, dietary intake, medication uses and outcomes, and bring to PCP/GI appointments. 2. Follow up with [facility] in 4 to 7 days. Office will call with appointment date and time. 3. Follow up with GI, Dr. Mackey, in 1 to 2 weeks. Please call office for appointment date and time. 4. Return to the ER or nearest hospital for return of worsening of symptoms, uncontrolled nausea, vomiting, diarrhea. Return for chest pain or discomfort, shortness of breath, dizziness, lightheadedness, loss of consciousness, high fever, chills, night sweats, or any other worrisome signs or symptoms. This is a summarized report of a complex medical history and hospital stay. For further details, please see the entire medical record. TIME SPENT: Approximately 35 minutes were spent on this discharge, greater than half of that time spent [id number] with the patient discussing discharge plans and instructions. ERIK IBRAHIM [id number]/[facility] #: [id number] MTDD
== END 2019-08-21 14:20 | disposition home or self-care (01) ==
LOC: ED 07:23 → MED 14:57 → ED 16:32
PROVIDERS: ADMIT Nurse Practitioner Family; ATTEND Internal Medicine
DX: G43.A0 Cyclical vomiting, in migraine, not intractable (principal); I49.8 Other specified cardiac arrhythmias; F90.9 Attention-deficit hyperactivity disorder, unspecified type; F41.9 Anxiety disorder, unspecified; F32.9 Major depressive disorder, single episode, unspecified; Z79.899 Other long term (current) drug therapy; Z79.3 Long term (current) use of hormonal contraceptives; Z91.010 Allergy to peanuts; F12.10 Cannabis abuse, uncomplicated; E87.6 Hypokalemia
CPT/HCPCS: 36415; 80053; 83690; 83735; 84443; 84702; 85025; 85652; 86140; 96361; 96365; 96366; 96375; 96376; 99284; A9270-GY; G0378; J1200; J1885; J2060; J2405; J2765; J3480